=== PATIENT | male | born 1950 | race Caucasian/White ===

== ENCOUNTER → 2017-02-18 | Outpatient (CLI) | payer MEDICARE, OTHER ==
[~2017-02-18] MED LIST: ASPI81CH PO; ATOR20 PO; Coumadin4 MG PO; Coumadin5 MG PO; DILT120 PO; DILT180 PO; DIPH50 PO; ENOX80I SC; FOLI1 PO; GLIM4 PO; HYDR1TAB94 PO; IBUP400 PO; INSR10I SUBQ; INSUASPI SC; INSULANPEN SC; Lisinopril2.5 MG PO; METF500 PO; METO25ER PO; METO50; METO50ER PO; METO5A PO; MULVITMIND PO; Micro-K10 MEQ PO; NALT50 PO; Norco 5-325 Ta1 EACH PO; PANT20 PO; PANT40 PO; THIA100 PO; TRAZ50 PO; WARF4 PO; WARF6 PO; [UNRECOGNIZED DRUG - OTHER] PO
[2017-02-18 16:06] LABS: BASOPHILS ABSOLUTE AUTO 0.03 K/mm3 (0.00-0.23); BASOPHILS PERCENT AUTO 1 % (0-2); EOSINOPHILS ABSOLUTE AUTO 0.16 K/mm3 (0.00-0.68); EOSINOPHILS PERCENT AUTO 3 % (0-6); Hematocrit 37.2 % (37.0-53.0); Hemoglobin 12.6 g/dL (13.5-17.5); IMMATURE GRAN ABSOLUTE AUTO 0.02 K/mm3 (0.00-0.10); IMMATURE GRAN PERCENT AUTO 0 % (0-1); LYMPHOCYTES ABSOLUTE AUTO 1.22 K/mm3 (0.84-5.20); LYMPHOCYTES PERCENT AUTO 21 % (21-46); MONOCYTES PERCENT AUTO 5 % (4-13); Mean Corpuscular HGB 31.4 pg (26.0-34.0); Mean Corpuscular HGB Conc 33.9 g/dL (31.5-36.5); Mean Corpuscular Volume 93 fL (80-100); Mean Platelet Volume 10.9 fL (9.1-12.4); NEUTROPHILS ABSOLUTE AUTO 4.08 K/mm3 (1.96-9.15); NEUTROPHILS PERCENT AUTO 70 % (41-73); Platelet Count 177 K/mm3 (150-400); RDW Coefficient Variation 13.1 % (11.7-14.2); RDW Standard Deviation 44.4 fL (35.1-46.3); Red Blood Cell Count 4.01 M/mm3 (4.30-5.90); White Blood Cell Count 5.81 K/mm3 (4.00-11.30)
[2017-02-18 16:51] LABS: Alanine Aminotransfer (ALT/SGP 48 U/L (12-78); Albumin, Blood 3.4 g/dL (3.4-5.0); Alk Phos 69 U/L (50-136); Anion Gap 7 mmol/L (6-16); Aspartate Aminotrans (AST/SGOT 36 U/L (12-37); Bilirubin, Direct <0.1 mg/dL (0.0-0.3); Bilirubin, Indirect Unable to Calculate mg/dL (0.1-0.7); Bilirubin, Total 0.4 mg/dL (0.1-1.0); Blood Urea Nitrogen 24 mg/dL (8-24); Bun/Creatinine Ratio 21.2 (12.0-20.0); CO2, Blood 25 mmol/L (21-32); Chloride, Blood 105 mmol/L (98-108); Creatinine, Blood 1.13 mg/dL (0.60-1.20); Globulin, Blood 3.5 g/dL (2.2-4.0); Glomerular Filtration Rate >60 (60-); Glucose, Blood 137 mg/dL (70-99); Potassium, Blood 4.7 mmol/L (3.5-5.5); Sodium, Blood 137 mmol/L (136-145); Total Protein, Blood 6.9 g/dL (6.4-8.2)
== END | disposition home or self-care (01) ==
LOC: OLS 13:42
PROVIDERS: Registered Nurse
DX: Z00.00 Encounter for general adult medical examination without abnormal findings (principal); I11.0 Hypertensive heart disease with heart failure; I50.9 Heart failure, unspecified; I48.1 Persistent atrial fibrillation
CPT/HCPCS: 36415; 80053; 82248; 84443; 85025

== ENCOUNTER → 2018-02-05 | Outpatient (CLI) | payer MEDICARE, OTHER | END | disposition home or self-care (01) | LOC: LAB EV 14:11 → LAB SHORT 14:11 | DX: R33.9 Retention of urine, unspecified (principal) | CPT/HCPCS: 87086 ==

== ENCOUNTER 2018-02-21 11:24 | Inpatient (IN) | payer MEDICARE, OTHER ==
[~2018-02-21] VITALS: Ht 182.9 cm; Wt 82.7 kg
[2018-02-21 12:08] LABS: BASOPHILS ABSOLUTE AUTO 0.05 K/mm3 (0.00-0.23); BASOPHILS PERCENT AUTO 0 % (0-2); EOSINOPHILS PERCENT AUTO 0 % (0-6); Hematocrit 37.8 % (37.0-53.0); Hemoglobin 12.9 g/dL (13.5-17.5); IMMATURE GRAN ABSOLUTE AUTO 0.14 K/mm3 (0.00-0.10); IMMATURE GRAN PERCENT AUTO 1 % (0-1); LYMPHOCYTES PERCENT AUTO 3 % (21-46); MONOCYTES ABSOLUTE AUTO 0.86 K/mm3 (0.16-1.47); MONOCYTES PERCENT AUTO 5 % (4-13); Mean Corpuscular HGB 31.7 pg (26.0-34.0); Mean Corpuscular HGB Conc 34.1 g/dL (31.5-36.5); Mean Corpuscular Volume 93 fL (80-100); Mean Platelet Volume 9.5 fL (9.1-12.4); NEUTROPHILS ABSOLUTE AUTO 14.29 K/mm3 (1.96-9.15); NEUTROPHILS PERCENT AUTO 90 % (41-73); Platelet Count 201 K/mm3 (150-400); RDW Coefficient Variation 12.1 % (11.7-14.2); RDW Standard Deviation 41.6 fL (35.1-46.3); Red Blood Cell Count 4.07 M/mm3 (4.30-5.90); White Blood Cell Count 15.84 K/mm3 (4.00-11.30)
[2018-02-21 12:34] LABS: Albumin, Blood 2.5 g/dL (3.4-5.0); Albumin/Globulin Ratio 0.7 (0.8-1.8); Bilirubin, Total 0.8 mg/dL (0.1-1.0); Bun/Creatinine Ratio 17.4 (12.0-20.0); Calcium, Blood 8.1 mg/dL (8.5-10.1); Creatinine, Blood 1.9 mg/dL (0.60-1.20); Globulin, Blood 3.7 g/dL (2.2-4.0); Potassium, Blood 3.9 mmol/L (3.5-5.5); Total Protein, Blood 6.2 g/dL (6.4-8.2)
[2018-02-21 12:44] LABS: Influenza A Negative (NEGATIVE); Influenza B Negative (NEGATIVE)
[2018-02-21] MEDS ORDERED: WARF6 PO (13:55)
[2018-02-21] MEDS ORDERED: TAMS.4ER PO (13:56)
[2018-02-21] MEDS ORDERED: INSUGL100V SC (13:56)
[2018-02-21] MEDS ORDERED: Bactrim 400-801 EACH PO (13:57)
[2018-02-21 15:16] LABS: International Normalized Ratio 1.18
[2018-02-21 15:53] LABS: Source, Urine Clean Catch
[2018-02-21 16:20] LABS: Appearance, Urine Cloudy (Clear); Blood, Urine 5+ (Neg); Color, Urine Yellow (P-Yellow); Glucose Qualitative, Urine Neg (Neg); Ketones, Urine 1+ (Neg); Leukocyte Esterase, Urine 3+ (Neg); Nitrite, Urine Pos (Neg); Protein, Urine 3+ (Neg); Specific Gravity, Urine 1.015 (1.003-1.022); Urobilinogen, Urine 1+ (Normal)
[2018-02-21 16:23] LABS: Bilirubin, Urine 1+ (Neg)
[2018-02-21 16:42] LABS: White Blood Cells, Urine TNTC /hpf (0-5)
[2018-02-21 16:43] LABS: Bacteria Few /hpf; Squamous Epithelial Cells Not Seen /hpf (Few)
[2018-02-21 16:51] LABS: U Amphetamine Screen Not Detected; U Barbituate Screen Not Detected; U Benzodiazapine Screen Not Detected; U Buprenorphine Screen Not Detected; U Cannabinoids Screen DETECTED; U Cocaine Screen Not Detected; U Methadone Screen Not Detected; U Methamphetamine Screen Not Detected; U Opiates Screen Not Detected; U Oxycodone Screen Not Detected; U Phencyclidine Screen Not Detected; U Propoxyphene Screen Not Detected
--- NOTE | 2018-02-21 17:01 | NUR ---
Patient arrived via gurney from ER post report. He was a slide transfer to ICU bed 2. He is alert and oriented and is on RA and stats upper 90%'s. His speech is clear and is able to communicate his needs. He has 16Fr. gordillo draining to gravity cloudy yellow urine. He c/o lower abdominal pain 8/10 and 10/10 with palp. He has 18gaIV in RFA and dressing intact and site WNL's and is infusing NS at 100ml/hr. He is able to MAEW. systolic 70-90's and MAP >65, HR 120 and A-Fib
--- NOTE | 2018-02-21 18:00 | NUR ---
Patient was resting but he awakened when enetering room and requested pain medication, and medicated with fentanyl 25mcg. and seemed to work.. Patient denies any other problems.
--- NOTE | 2018-02-22 00:33 | NUR ---
ASSUMED CARE RECEIVED PT REPORT FROM BERTRAND NELSON. PT IS ADMITTED DUE TO UROSEPSIS. PT IS ALERT AND ORIENTED AT THE TIME CARE ASSUMED. PT HAS OROZCO CATH IN PLACE THAT IS CURRENTLY PATENT AND DRAINING CLOUDY YELLOW URINE. SOME ODEROUS DISCHARGE NOTED FROM MEATAL OPENING AROUND CATHETER INSERTION WITH CATH CARE. PT HAS A HX OF CHRONIC A-FIB. PT HR AT THE TIME CARE WAS ASSUMED IS IN THE 100-120'S. PT BP IS IN THE 90-100'S. PT ON ROOM AIR AT THE TIME CARE ASSUMED WITH SPO2 IN THE 90'S PT IS RECEIVING NS AT 200ML/HR AT THE TIME OF SHIFT REPORT. SHORTLY AFTER CARE ASSUMED PT HR INCREASED TO THE 150-160'S. PT REPORTED INCREASED NAUSEA AND TEMPERATURE INCREASED TO APPROX 102. DR GREEN CALLED AND ORDERS RECEIVED TO PROVIDE 500ML BOLUS OF NS AND PROVIDE 1 TIME DOSE OF LEVOFLOXACIN 500MG. ORDERS ENTERED AND CARRIED OUT RECEIVED. PT HR APPEARED TO RESPOND AND LOWERED TO THE 120'S. AT APPROX 2145 PT BEGAN TO REPORT WHAT WAS DESCRIBED AT INTENSE "STABBING" PAIN TO THE RIGHT FLANK. PT STATED THAT HE HAD PAIN RADIATING DOWN TO TESTICLES WELL. PT ALSO REPORTED INCREASED NAUSEA. DR GREEN CALLED AND INFORMED OF PTS REPORTS OF PAIN AND INCREASED HR. ORDER RECEIVED TO TAKE PT TO CT FOR ABDOMINAL AND PELVIS CT W/O CONTRAST. DR GREEN STATED THAT HR DID NOT NEED TO BE TREATED UNLESS IT MAINTAINED IN THE 150'S OR PT BP BEGINS TO DECLINE. ORDERS ENTERED RECEIVED. PT TAKEN TO CT AT APPROX 2230 AND RETURNED AT 2258. PT CONTINUED TO REPORT RIGHT FLANK PAIN. DR GARCIA CALLED AT APPROX 2318. INSTRUCTIONS RECEIVED TO PROVIDE ADDITIONAL 25MCG OF FENTANYL. ASSUMED CARE OF PT AT THE TIME OF SHIFT REPORT. WILL CONTINUE TO MONITOR PT.
[2018-02-22 04:22] LABS: Hematocrit 35.1 % (37.0-53.0); Hemoglobin 12.2 g/dL (13.5-17.5); Mean Corpuscular HGB 30.9 pg (26.0-34.0); Mean Corpuscular HGB Conc 34.8 g/dL (31.5-36.5); Mean Corpuscular Volume 89 fL (80-100); Mean Platelet Volume 11.7 fL (9.1-12.4); Platelet Count 131 K/mm3 (150-400); RDW Coefficient Variation 11.9 % (11.7-14.2); RDW Standard Deviation 38.9 fL (35.1-46.3); Red Blood Cell Count 3.95 M/mm3 (4.30-5.90); White Blood Cell Count 13.91 K/mm3 (4.00-11.30)
[2018-02-22 04:44] LABS: Albumin, Blood 2.1 g/dL (3.4-5.0); Albumin/Globulin Ratio 0.6 (0.8-1.8); Bilirubin, Total 0.4 mg/dL (0.1-1.0); Bun/Creatinine Ratio 19.2 (12.0-20.0); Calcium, Blood 7.4 mg/dL (8.5-10.1); Creatinine, Blood 1.82 mg/dL (0.60-1.20); Globulin, Blood 3.4 g/dL (2.2-4.0); Magnesium, Blood 1.7 mg/dL (1.6-2.4); Potassium, Blood 3.3 mmol/L (3.5-5.5); Total Protein, Blood 5.5 g/dL (6.4-8.2)
--- NOTE | 2018-02-22 06:10 | NUR ---
SHIFT SUMMARY NOTE PT HAS REMAINED ALERT AND ORIENTED THROUGH THE SHIFT. PT CONTINUES TO BE PAINFUL AND NAUSEOUS. PT HAS BEEN PROVIDED FENTANYL AND ZOFRAN FREQUENTLY THROUGHOUT THE NIGHT. PT HAS REMAINED IN A-FIB WITH RVR THROUGH THE NIGHT. PT HR HAS MAINTAINED IN THE 130-140'S THROUGH MUCH OF THE NIGHT WITH OCCASIONAL SPIKES INTO THE 150' AND 160'S. DR GARCIA WAS CALLED AND INFORMED OF PTS HR. 250ML NS BOLUS PROVIDED. PT BP RESPONDED TO BOLUS. AFTER NS BOLUS 10MG CARDIZEM BOLUS PROVIDED WITH SOME EFFECT. PT BP MAINTAINED AFTER ADMINISTRATION OF DILTIAZEM. DR GARCIA WAS CALLED AND ORDER RECEIVED FOR CARDIZEM GTT. CARDIZEM GTT STARTED AT 5MG/HR. CARDIZEM TITRATED UP TO 10MG/HR AT APPROX 0620. PT HAS HAD OCCASIONAL RUNS OF V-TACH THROUGH THE NIGHT, APPROX 5-6 BEATS LONG. PT REMAINS ON NS AT 150ML/HR. PT HAD APPROX 650ML OF URINE OUTPUT OVERNIGHT. PT URINE IS DARK MAGDIEL AND VERY CLOUDY, WITH SOME ODOR. PT CONTINUES TO REPORT ABD AND RIGHT FLANK PAIN INTERMITTENTLY. PT REPORTS RELEIF WITH FENTANYL ADMINISTRATION BUT ONLY BREIFLY. PT CONTINUES TO HAVE A TEMP OF APPROX 100.1 PT HAS OCCASIONALLY DESATURATED WHEN ASLEEP INTO THE HIGH 80'S. O2 VIA NC APPLIED AT 4L. LUNGS REMAIN OCCASIONALLY COARSE. SOME FINE CRACKLES HEARD TOWARD THE END OF THE SHIFT. WILL REPORT OFF TO ONCOMING DAY SHIFT NURSE.
--- NOTE | 2018-02-22 08:30 | NUR ---
Recieved report from Jona THURSTON. Patient was resting during report and allowing him to rest as in report he recieved no rest all night. He awoke in pain 08/20 and got order for fentanyl patch and gave IV Fentanyl 50 mcg, 4mg Zofran and stated doing better. US in room doing Renal US. He c/o flank and lower abd. pain. He has Mc draing cloudy yellow urine to gravity. He has bilateral SCD's in place.. He MAEW but weak and is indepenedent with repositioning in bed. He has been on RA and tolerating well.
--- NOTE | 2018-02-22 09:24 | NUR ---
Patient awake and having dry heaves and states r/t pain. Medicated about an hour agor with Fentanyl and zofran and he has patch on and is not timed for any pain meds. Gave tylenol for fever and some pain.He continueson Cardizem drip at 15mnl/hr with rate of 90's and A-Fib. Will call for decreased time for meds.
--- NOTE | 2018-02-22 11:30 | NUR ---
Patient was painful and called Dr. Young and changed Fenatayl frequency to two hours. He seems to manage well most of time, but can't quiet make the full duration for pain med. When every 4 hours he could last three pain free and now that it is every two hours he is only last about 1.5 hours. Cardizem gtt at 10 and his rate is down to 90s and syatolic 130's. Will communicate with Dr Young of pain duration. He remains on Ra and sats mid 90%'s.
--- NOTE | 2018-02-22 13:30 | NUR ---
Patient continues to have pain and medicating every two hours. Cardizem gtt remains at 10mg and HR in the 80-90's, systolic 116 and sats 94% on RA. NS continues at 150ml/hr.
--- NOTE | 2018-02-22 15:30 | NUR ---
Medicated with 50 mcg of fentanyl and 4 mg Zofran for retching. No other significant changes on gtt or VS.
--- NOTE | 2018-02-22 17:56 | NUR ---
Patient resting intermitently and awakens shortly before pain meds are due in pain. He has been tolerating ice chips most fo shift. Cardizem remains at 10mg and started on potassium riders. He has NS at 150ml, no significant changes in lung sounds this shift. CBG's today low 200's.
--- NOTE | 2018-02-22 21:05 | NUR ---
Assumed care of the pt. Pt. a/o x3. C/O ABD pain- too early for med but will give when due. B/P stable. Monitor shows A-Fib with controlled rate on cardizem 10mg/hr. NS infusing at 150ml/hr. KCL infusion completed. Con't with episodes of dry heaves.
--- NOTE | 2018-02-22 21:07 | NUR ---
ASSUMING CARE AND PT REPORT RECEIVED PT REPORT FROM BERTRAND NELSON, PT IS ALERT AND ORIENTED AT THE TIME OF SHIFT REPORT. PT CONTINUES TO BE QUITE PAINFUL. PT HAS REQUIRED FREQUENT PAIN MEDICATION ADMINISTRATION PER REPORT AND EMAR. PT REMAINS ON DILT GTT AT 10MG/HR, PT IS RECEIVING KCL IV, AND NS AT 150ML/HR. PT HAS A OROZCO CATH IN PLACE. CURRENTLY PATENT AND DRAINING CLOUDY YELLOW URINE. URINE APPEARANCE HAS IMPROVED SOMEWHAT SINCE PREVIOUS SHIFT OF CARE. PT IS ON 4L O2 VIA NC AT THIS TIME. PT WILL OCCASIONALLY DESATURATE WHILE ASLEEP. LUNG SOUNDS ARE OCCASIONALLY COARSE. PT HR IS CURRENTLY MAINTAINING IN THE 90-100 RANGE. PT BP APPEARS TO BE STABLE AT THIS TIME. ASSUMED CARE OF PT AT THE TIME OF SHIFT REPORT (APPROX 1900). PT PROVIDED 50MCG FENTANYL AND 4MG ZOFRAN, DUE TO PAIN AND NAUSEA AT THE START OF THE SHIFT. AT APPROX 2100 REPORT GIVEN TO BERTRAND LEE. JESUS TO BE ASSUMING CARE OF PT AT THIS TIME.
--- NOTE | 2018-02-23 01:56 | NUR ---
Pain- pt. requiring 50mg Fentanyl q 2 hr. Pt. pain level up to 9 and then down to 2-3 past med given and pt able to sleep until almost time for next dose.
[2018-02-23 03:21] LABS: BASOPHILS ABSOLUTE AUTO 0.03 K/mm3 (0.00-0.23); BASOPHILS PERCENT AUTO 0 % (0-2); EOSINOPHILS PERCENT AUTO 0 % (0-6); Hematocrit 32.9 % (37.0-53.0); Hemoglobin 11.2 g/dL (13.5-17.5); IMMATURE GRAN ABSOLUTE AUTO 0.05 K/mm3 (0.00-0.10); IMMATURE GRAN PERCENT AUTO 0 % (0-1); LYMPHOCYTES PERCENT AUTO 3 % (21-46); MONOCYTES PERCENT AUTO 6 % (4-13); Mean Corpuscular HGB 30.4 pg (26.0-34.0); Mean Corpuscular Volume 89 fL (80-100); Mean Platelet Volume 10.3 fL (9.1-12.4); NEUTROPHILS ABSOLUTE AUTO 10.51 K/mm3 (1.96-9.15); NEUTROPHILS PERCENT AUTO 91 % (41-73); Platelet Count 151 K/mm3 (150-400); RDW Coefficient Variation 12.5 % (11.7-14.2); RDW Standard Deviation 41.1 fL (35.1-46.3); Red Blood Cell Count 3.68 M/mm3 (4.30-5.90); White Blood Cell Count 11.59 K/mm3 (4.00-11.30)
[2018-02-23 03:42] LABS: Bun/Creatinine Ratio 23.6 (12.0-20.0); Calcium, Blood 7.3 mg/dL (8.5-10.1); Creatinine, Blood 1.48 mg/dL (0.60-1.20); Potassium, Blood 3.4 mmol/L (3.5-5.5)
--- NOTE | 2018-02-23 04:07 | NUR ---
SAO2- Attempted to dc O2 and SAO2 decreased to 78% after 15-20 min. O2 at 2l/nc reapplied.
--- NOTE | 2018-02-23 06:05 | NUR ---
Summary- Pt. has req. pain med every 2 hrs t/o noc. Pain level 9 before med and decrease to 34 after. Pt. has slept past doses. Pt. moves independently in bed. IV's of NS and cardizem remain unchg'd.Monito con't A-FIB with rate mainlu <100 but couple of brief episodes of 100's. B/P has remained stable t/o night. Urine has cleared to a med yellow and so cloudy. Good u/o per gordillo. Blood Sugars have been covered x2 tonight with 3units each time.
--- NOTE | 2018-02-23 07:30 | NUR ---
Recieved report from Anthony THURSTON. Patient resting but easily awakened to verbal stimuli. He states he did not sleep well r/t pain and was medicated every two hours. He is on 2L O2 with sats in the mid 90%'s via NC. He has IV bilaterally upper extremities at wrist and Dressings intact and WNL's. The left is infuasing ns at 150ml/hr and the right iis infusing Carizem at 10m,g/hr with HR in the 80's and systolic low 100's. Will communicate with Hospitalist that current pain regimine is not keeping up with his pain control He has 16Fr. gordillo draining to gravity, less cloudy and more yellow. He continues to each ice chips sparingly.
--- NOTE | 2018-02-23 09:30 | NUR ---
Dr Young by and we changed medication regimine for pain and when in room patiet snoring. No changes in VS or gtt. He tolertaed two small cartons of whole milk and Dr Young would like to start diet as tolerated and will start with mech soft.
--- NOTE | 2018-02-23 11:27 | NUR ---
Patient continues to lsleep with little movement. No changes in gtt's or VS. Increased O2 to $l O2 while sleeping he was desatting upper 80's and now back in the 90"s.
--- NOTE | 2018-02-23 13:30 | NUR ---
Medicated patient by request. I brought him lunch and he stated he would try in a little bit. He has been sleeping since and will hold lunch until awakens. He tolerates liquids well but is trying not to eat solids and he really has no reason that he is staing. No changes in gtt or VS. Will let to continue to sleep. CBG 219 and covered with 5 unis Insulin.
--- NOTE | 2018-02-23 15:30 | NUR ---
No changes and he continues to sleep. The 4mg Morphine seems to last about 4 hours and allows him to rest. No changes to VS, Gtt's or O2. He continues to sat low to mid 90%'s on 4L while sleeping. Poor appetite and drank another milk.
--- NOTE | 2018-02-23 18:14 | NUR ---
Patient is awake and less painfull after medication. He is on the phone with daughter. Cardizem gtt went to 15 for a little bit with rate in the 120's and is slowly coming down and will adjust gtt. Fluids still running at 150ml/hr and He has two potassium riders that need to infuse. Did not want to take bath today.
--- NOTE | 2018-02-23 20:32 | NUR ---
CARE ASSUMED REPORT RECEIVED, CARE ASSUMED. PT AROUSES ON NURSE ROUNDING. REPORTS PAIN IN FLANK AND ABDOMEN, MEDICATED PER EMAR. DILTIAZEM INFUSING, PLAN TO TITRATE PT TOLERATES. SEE FLOWSHEETS. PT ON 4 LPM NASAL CANNULA 02 SAT MID 90'S, WILL TITRATE PT TOLERATES. PT REQUESTING MILK AND WATER, PROVIDED TWO TIMES. PT AGREEABLE TO USE CALL LIGHT FOR NEEDS.
--- NOTE | 2018-02-23 22:44 | NUR ---
OXYGEN TITRATION PT TITRATED TO 3 LPM NASAL CANNULA, O2 SAT DROPPED TO MID 80'S. RETURNED 02 TO 3 LPM AND SATURATIONS IMPROVED TO LOW 90'S.
[2018-02-24 03:27] LABS: BASOPHILS ABSOLUTE AUTO 0.02 K/mm3 (0.00-0.23); BASOPHILS PERCENT AUTO 0 % (0-2); EOSINOPHILS ABSOLUTE AUTO 0.06 K/mm3 (0.00-0.68); EOSINOPHILS PERCENT AUTO 1 % (0-6); Hematocrit 32.9 % (37.0-53.0); Hemoglobin 11.3 g/dL (13.5-17.5); IMMATURE GRAN ABSOLUTE AUTO 0.11 K/mm3 (0.00-0.10); IMMATURE GRAN PERCENT AUTO 1 % (0-1); LYMPHOCYTES ABSOLUTE AUTO 0.43 K/mm3 (0.84-5.20); LYMPHOCYTES PERCENT AUTO 4 % (21-46); MONOCYTES ABSOLUTE AUTO 1.03 K/mm3 (0.16-1.47); MONOCYTES PERCENT AUTO 9 % (4-13); Mean Corpuscular HGB 30.9 pg (26.0-34.0); Mean Corpuscular HGB Conc 34.3 g/dL (31.5-36.5); Mean Corpuscular Volume 90 fL (80-100); Mean Platelet Volume 9.3 fL (9.1-12.4); NEUTROPHILS ABSOLUTE AUTO 10.29 K/mm3 (1.96-9.15); NEUTROPHILS PERCENT AUTO 86 % (41-73); Platelet Count 174 K/mm3 (150-400); RDW Coefficient Variation 12.6 % (11.7-14.2); RDW Standard Deviation 42.1 fL (35.1-46.3); Red Blood Cell Count 3.66 M/mm3 (4.30-5.90); White Blood Cell Count 11.94 K/mm3 (4.00-11.30)
[2018-02-24 03:43] LABS: Bun/Creatinine Ratio 23.6 (12.0-20.0); Calcium, Blood 7.6 mg/dL (8.5-10.1); Creatinine, Blood 1.4 mg/dL (0.60-1.20)
[2018-02-24 03:47] LABS: International Normalized Ratio 1.11; Prothrombin Time Results 11.4 Sec (9.7-11.5)
[2018-02-24] MEDS ORDERED: Lisinopril2.5 MG (04:58)
[2018-02-24] MEDS ORDERED: METO100ER PO (04:58)
--- NOTE | 2018-02-24 05:33 | NUR ---
MED REC DR. COKER CONTACTED REGARDING WARFARIN PHARMACY CONSULT. WHILE DISCUSSING WARFARIN CONSULT WITH PHARMACY, PT RE-INTERVIEWED REGARDING HOME MEDS AND STATES, "I HAD A FALLING OUT WITH MY DOCTOR SO I HAVEN'T BEEN TAKING THEM." FURTHER INQUIRY REVEALED PT ALSO TAKES METOPROLOL AND LISINOPRIL AT HOME BUT HASNT TAKEN THAT FOR WEEKS EITHER. WILL UPDATE DAY SHIFT RN TO BE ADDRESSED ON DAY SHIFT MD ROUNDS.
--- NOTE | 2018-02-24 05:49 | NUR ---
SUMMARY THROUGHOUT NIGHT, PT HAS SLEPT INTERMITTENTLY BUT AROUSING DUE TO PAIN/NAUSEA. MEDICATED PER EMAR. HR CONTINUES TO BE ELEVATED AVERAGING 100-110'S. DILTIAZEM CONTINUES TO INFUSE, SEE FLOWSHEET. BLOOD SUGARS ELEVATED ON AM LAB, PLAN IS TO START LONG ACTING INSULIN AND CONTINUE WITH MEDIUM SLIDING SCALE AT SCHEDULED TIMES. SEE ASSESSMENTS. PLAN CALLING APPROPRIATELY FOR NEEDS THROUGHOUT NIGHT.
--- NOTE | 2018-02-24 06:50 | NUR ---
UPDATE - HR/BP HR MAINTAINING 120-130'S, TOUCHING INTO 140'S AND 150'S OCCASIONALLY. BP ALSO ELEVATED. DILTIAZEM TITRATED, SEE FLOWSHEET.
--- NOTE | 2018-02-24 07:45 | NUR ---
ASSUMED CARE: PT IN BED AT THIS TIME. C/O NAUSEA AND PAIN. APPEARS TO BE DRY HEAVING. STATES HE HAS NOT VOMITED ANYTHING UP. MORPHINE GIVEN WHEN ABLE. ULTRA SOUND TECH IN ROOM NOW. IV FLUIDS RUNNING. CARDIZEM GTT AT 15MG/HR. HR IN 1TEENS WHEN PT IS CALM AND NOT ACTIVELY HEAVING OR IN SEVERE PAIN
--- NOTE | 2018-02-24 07:56 | NUR ---
PT'S HR CURRENTLY BETWEEN 130S AND 150S. CARDIZEM INCREASED TO 20MG/HR AT THIS TIME. WILL DISCUSS FURTHER WITH DR MACIAS
--- NOTE | 2018-02-24 09:07 | NUR ---
REPORTED TO DR MACIAS THAT PT'S HR REMAINS BETWEEN 130S AND 150S WITH CARDIZEM TITRATED TO 20MG/HR. SEE NEW ORDERS. PT REMAINS NAUSEATED. MEDS FOR NAUSEA GIVEN. RESTING IN BED WITH RAG ON FOREHEAD. DENIES OTHER NEEDS AT THIS TIME.
--- NOTE | 2018-02-24 10:59 | NUR ---
DISCUSSED WITH ISTRATE PT'S STATUS AND CURRENT RATE WITH CARDIZEM. INSTRUCTED TO CALL WITH UPDATE THIS AFTERNOON. GLOBAL MARKETING OPERATIONS MANAGER AWARE
--- NOTE | 2018-02-24 13:07 | NUR ---
DISCUSSED WITH DR MACIAS PT'S STATUS. CHANGED TO PCU STATUS. CHANGES MADE TO MEDS TO CONTINUE SNF ASSISTANCE WITH HR CONTROL. POWER TRANSFORMER REPAIR SUPERVISOR AWARE
--- NOTE | 2018-02-24 17:31 | NUR ---
SHIFT SUMMARY: PT REMAINS ON CARDIZEM DRIP. TITRATING FOR EFFECT. CURRENTLY ON 10 MG/HR. MEDICATING FREQUENTLY FOR PAIN AND NAUSEA. PT CONTINUES TO REPOSITION SELF IN BED BUT DOES NOT FEEL LIKE DOING MUCH IN THE WAY OF ACTIVITY. PCU STATUS. NO FURTHER NEEDS OR CONCERNS AT THIS TIME.
--- NOTE | 2018-02-24 18:08 | NUR ---
REPORT CALLED TO BERTRAND MARIN. PT AMBULATED WITH MINIMAL ASSIST TO WHEEL CHAIR UPON TRANSFER. GOWN CHANGED PRIOR TO TRANSFER. NO OTHER NEEDS OR CONCERNS NOTED
--- NOTE | 2018-02-24 18:21 | NUR ---
PATIENT TRANSFERRED FROM ROOM ICU 2, REPORT RECEIVED FROM BERTRAND RANDALL. PATIENT ARRIVED VIA W/C, TRANSFERRED TO BE WITH SBA. CARDIZEM GTT RESTARTED AT 8ML/HR TO L FA IV. NS RESTARTED AT 150ML/HR TO R FA 18G IV. PATIENT REPORTS PAIN 5/10 TO ABD/FLANKS. R VELÁZQUEZ ABRASION, OTHER CHUNG SKIN INTACT. A-FIB AT 105 ON TELEMETRY. PATIENT DENIES ANY CHEST PAIN AT THIS TIME. VSS. 96% ON 4LO2, PATIENT DOES NOT USE HOME O2. ORIENTED TO ROOM, USE OF CALL LIGHT AND SAFETY PRECAUTIONS.
[2018-02-25 04:07] LABS: BASOPHILS ABSOLUTE AUTO 0.02 K/mm3 (0.00-0.23); BASOPHILS PERCENT AUTO 0 % (0-2); EOSINOPHILS ABSOLUTE AUTO 0.13 K/mm3 (0.00-0.68); EOSINOPHILS PERCENT AUTO 1 % (0-6); Hematocrit 32.1 % (37.0-53.0); IMMATURE GRAN ABSOLUTE AUTO 0.15 K/mm3 (0.00-0.10); IMMATURE GRAN PERCENT AUTO 1 % (0-1); LYMPHOCYTES ABSOLUTE AUTO 0.84 K/mm3 (0.84-5.20); LYMPHOCYTES PERCENT AUTO 6 % (21-46); MONOCYTES ABSOLUTE AUTO 1.19 K/mm3 (0.16-1.47); MONOCYTES PERCENT AUTO 9 % (4-13); Mean Corpuscular HGB Conc 34.3 g/dL (31.5-36.5); Mean Corpuscular Volume 90 fL (80-100); Mean Platelet Volume 9.8 fL (9.1-12.4); NEUTROPHILS ABSOLUTE AUTO 10.79 K/mm3 (1.96-9.15); NEUTROPHILS PERCENT AUTO 82 % (41-73); Platelet Count 159 K/mm3 (150-400); RDW Coefficient Variation 12.7 % (11.7-14.2); RDW Standard Deviation 42.6 fL (35.1-46.3); Red Blood Cell Count 3.55 M/mm3 (4.30-5.90); White Blood Cell Count 13.12 K/mm3 (4.00-11.30)
[2018-02-25 04:23] LABS: International Normalized Ratio 1.29; Prothrombin Time Results 13.1 Sec (9.7-11.5)
[2018-02-25 04:24] LABS: Anion Gap 8 mmol/L (6-16); Blood Urea Nitrogen 30 mg/dL (8-24); Bun/Creatinine Ratio 24.2 (12.0-20.0); CO2, Blood 22 mmol/L (21-32); Calcium, Blood 7.4 mg/dL (8.5-10.1); Chloride, Blood 107 mmol/L (98-108); Creatinine, Blood 1.24 mg/dL (0.60-1.20); Glomerular Filtration Rate >60 (60-); Glucose, Blood 218 mg/dL (70-99); Potassium, Blood 3.5 mmol/L (3.5-5.5); Sodium, Blood 137 mmol/L (136-145)
--- NOTE | 2018-02-25 05:26 | NUR ---
SHIFT SUMMARY PT A&O X4, CALM AND COOPERATIVE, C/O ABD PAIN, REQUESTING PAIN MEDICATION PERIODICALLY T/O SHIFT. PT TX'D PER EMAR. LUNG SOUNDS CLEAR T/O. SPO2 > 90% TITRATED FROM 4L NC TO RA T/O SHIFT. MONITOR SHOWS AFIB, HR 90-140. CARDIZEM GTT INFUSING @ 10 MG/HR. NS GTT @ 150 MLS/HR. PT DRINKING FLUIDS T/O NIGHT. OROZCO CATH PATENT AND DRAINING CLEAR YELLOW URINE. PT C/O NAUSEA, TX'D PER EMAR. WILL CONTINUE TO MONITOR AND PROVIDE CARE UNTIL REPORT OFF TO DAY SHIFT RN.
--- NOTE | 2018-02-25 19:22 | NUR ---
PATIENT A/OX4, UP WITH SBA. CONTINUES ON CARDIZEM GTT AT 10ML/HR AND NS AT 150ML/HR. LFA IV INFILTRATED WHILE GIVING D50 AND IS RED AND TENDER TO TOUCH. BLOOD SUGAR CAME UP FROM [address] MACIAS NOTIFIED OF BLOOD SUGAR AND SS INSULIN DECREASED TO LOW SS AND LANTUS CHANGED BACK TO QHS INSTEAD OF BID. PATIENT CONTINUES TO HAVE ABD PAIN AND NAUSEA, RECEIVING MORPHINE AND ZOFRAN TO TREAT. A-FIB ON TELE WITH PULSE BETWEEN 90 AND 120. DENIES ANY CHEST PAIN OR SOB. MAINTAING SATS ON RA. CALM AND COOPERATIVE WITH CARE, USES CALL LIGHT APPROPRIATELY FOR ASSISTANCE.
--- NOTE | 2018-02-26 00:20 | NUR ---
BLOOD GLUCOSE HS BLOOD GLUCOSE OF 107 MG/DL; EVENING DOSE OF LANTUS HELD PER CLINICAL JUDGEMENT. SPOT CHECKED CBG WITH RESULT OF 50 MG/DL. PT CURRENTLY ASYMPTOMATIC AND PROVIDED WITH ORANGE JUICE PER HYPOGLYCEMIA PROTOCOL. WILL RECHECK IN ONE HOUR IF PATIENT REMAINS ASYMPTOMATIC. PT EDUCATED TO CALL FOR ASSISTANCE IF S/SX OF HYPOGLYCEMIA ARE PRESENT. WILL CONTINUE MONITORING. BED IN LOW POSITION, CALL LIGHT IN REACH.
--- NOTE | 2018-02-26 01:30 | NUR ---
BLOOD GLUCOSE- REPEAT BLOOD GLUCOSE PERFORMED WITH RESULT OF 98 MG/DL. PT CONTINUES TO BE ASYMPTOMATIC AT THIS TIME. MED REC UPDATED TO REFLECT PATIENT'S HOME INSULIN REGIMEN, WHICH IS 20-40 UNITS OF LANTUS EVERY TWO TO THREE DAYS, DEPENDING ON BLOOD GLUCOSE, WILL DISCUSS WITH PROVIDER IN AM. PT REPORTS THAT HE CONTROLS BLOOD GLUCOSE WITH DIET AT HOME AND USES INSULIN NEEDED, BUT DOES NOT USE FREQUENTLY. ALSO PROVIDED WITH WHOLE MILD PER REQUEST IN ATTEMPTS TO MAINTAIN BLOOD GLUCOSE LEVELS. WILL CONTINUE TO MONITOR.
[2018-02-26 04:31] LABS: BASOPHILS ABSOLUTE AUTO 0.01 K/mm3 (0.00-0.23); BASOPHILS PERCENT AUTO 0 % (0-2); EOSINOPHILS ABSOLUTE AUTO 0.15 K/mm3 (0.00-0.68); EOSINOPHILS PERCENT AUTO 2 % (0-6); Hematocrit 26.5 % (37.0-53.0); Hemoglobin 9.2 g/dL (13.5-17.5); Mean Corpuscular HGB 30.8 pg (26.0-34.0); Mean Corpuscular HGB Conc 34.7 g/dL (31.5-36.5); Mean Corpuscular Volume 89 fL (80-100); Platelet Count 174 K/mm3 (150-400); RDW Coefficient Variation 12.6 % (11.7-14.2); Red Blood Cell Count 2.99 M/mm3 (4.30-5.90); White Blood Cell Count 9.56 K/mm3 (4.00-11.30)
[2018-02-26 04:38] LABS: IMMATURE GRAN ABSOLUTE AUTO 0.19 K/mm3 (0.00-0.10); IMMATURE GRAN PERCENT AUTO 2 % (0-1); LYMPHOCYTES ABSOLUTE AUTO 0.93 K/mm3 (0.84-5.20); LYMPHOCYTES PERCENT AUTO 10 % (21-46); MONOCYTES ABSOLUTE AUTO 0.79 K/mm3 (0.16-1.47); MONOCYTES PERCENT AUTO 8 % (4-13); NEUTROPHILS ABSOLUTE AUTO 7.49 K/mm3 (1.96-9.15); NEUTROPHILS PERCENT AUTO 78 % (41-73)
[2018-02-26 04:45] LABS: International Normalized Ratio 1.62; Prothrombin Time Results 16.2 Sec (9.7-11.5)
[2018-02-26 05:19] LABS: Anion Gap 6 mmol/L (6-16); Blood Urea Nitrogen 25 mg/dL (8-24); CO2, Blood 26 mmol/L (21-32); Calcium, Blood 6.9 mg/dL (8.5-10.1); Chloride, Blood 106 mmol/L (98-108); Creatinine, Blood 1.19 mg/dL (0.60-1.20); Glomerular Filtration Rate >60 (60-); Glucose, Blood 111 mg/dL (70-99); Potassium, Blood 3.4 mmol/L (3.5-5.5); Sodium, Blood 138 mmol/L (136-145)
--- NOTE | 2018-02-26 06:51 | NUR ---
SHIFT SUMMARY- PT HAS REMAINED AOX4 THROUGHOUT SHIFT. VSS. PLEASANT AND COOPERATIVE WITH CARE. HEART RHYTHM HAS REMAINED IN ATRIAL FIBRILLATION THROUGHOUT SHIFT WITH A RATE RANGING FROM 90-120, HAS REMAINED MOSTLY IN 110'S- CARDIZEM DRIP CONTINUES TO INFUSE WITH A CURRENT RATE OF 10 MG/HR. RFA INFLITRATED THIS AM, SWELLING AND REDNESS NOTED AROUND AREA APPROXIMATELY 5 CM IN DIAMETER FROM INSERTION SITE. PHARMACY CONTACTED AND ADVISED TO ELEVATE EXTREMITY AND APPLY HEAT IF DESIRED, PT REPORTS MILD DISCOMFORT TO AREA. POWERGLIDE PLACED. PT MEDICATED MULTIPLE TIMES FOR NAUSEA AND PAIN IN LOWER ABDOMEN THROUGHOUT THE NIGHT THAT RELIEVES WITH ORDERED MEDICATIONS.MORNING BLOOD GLUCOSE [id number] WITH AM LABS, PT NEVER BECAME SYMPTOMATIC WITH HYPOGLYCEMIA. NO OTHER CHANGES NOTED FROM INITIAL ASSESSMENT. WILL CONTINUE TO MONITOR AND REPORT TO ONCOMING RN. BED IN LOW POSITION, CALL LIGHT IN REACH.
--- NOTE | 2018-02-26 07:45 | NUR ---
NURSING PCU DAYSHIFT: Assumed care of pt at approx 0700. A/O, pleasant, cooperative w/care. Repositions independently and ambulates w/one staff assist, c/o chronic limited range of motion of R shoulder. C/O 3/10 "bladder pain" which is being treated w/rest, repositioning, and meds as ordered. Skin is dry w/no significant breakdown noted. Tele in place, afib w/HR 80-90's, no c/o CP/pressure, BP stable, no noted edema, pulses palp though R pedal pulse is faint. L/S cta t/o, O2 sat upper 90's on RA, denies dyspnea, no noted cough. Abd tender, BT+, c/o intermittent nausea, FC w/stat lock in place and draining clear/yellow urine. PG present in RUE, NS infusing at 150cc/hr, diltiazem gtt infusing at 10/hr. No s/s of acute distress at this time. Pt denies any current needs or questions regarding plan of care. Call light in reach and pt is able to use w/o difficulty. Awaiting rounding from PMD, will notify of Lantus dose being held by NOC RN w/ a.m. CBG result of 81. Cont to monitor for any changes.
--- NOTE | 2018-02-26 17:56 | NUR ---
NURSING PCU DAYSHIFT SUMMARY: No significant changes noted t/o the shift. VS have remained stable, no HR changes noted. Diltiazem gtt decreased to 5cc/hr at approx 1600, HR remained 90-110. Diltiazem gtt turned off at approx 1700, again no HR changes were noted. NS decreased to 75cc/hr, FC dc'd, and pt changed to medical status as per d/o. Family at bedside this afternoon. Ambulated halls ( >400ft ) w/rest breaks as needed. Pt required FWW though tolerated fairly well. No s/s of acute distress at this time. Call light in reach and pt is able to use w/o difficulty. Pt denies any current needs. Cont to monitor until rpt is given to TOREY RN.
[2018-02-27 04:31] LABS: Hematocrit 21.7 % (37.0-53.0); Hemoglobin 7.2 g/dL (13.5-17.5); Mean Corpuscular HGB 30.1 pg (26.0-34.0); Mean Corpuscular HGB Conc 33.2 g/dL (31.5-36.5); Mean Corpuscular Volume 91 fL (80-100); Mean Platelet Volume 9.2 fL (9.1-12.4); Platelet Count 220 K/mm3 (150-400); RDW Coefficient Variation 12.7 % (11.7-14.2); RDW Standard Deviation 42.6 fL (35.1-46.3); Red Blood Cell Count 2.39 M/mm3 (4.30-5.90); White Blood Cell Count 10.12 K/mm3 (4.00-11.30)
[2018-02-27 04:45] LABS: International Normalized Ratio 1.7
[2018-02-27 04:47] LABS: Albumin, Blood 1.6 g/dL (3.4-5.0); Anion Gap 6 mmol/L (6-16); Blood Urea Nitrogen 28 mg/dL (8-24); Bun/Creatinine Ratio 22.6 (12.0-20.0); CO2, Blood 26 mmol/L (21-32); Calcium, Blood 6.9 mg/dL (8.5-10.1); Chloride, Blood 105 mmol/L (98-108); Creatinine, Blood 1.24 mg/dL (0.60-1.20); Glomerular Filtration Rate >60 (60-); Glucose, Blood 214 mg/dL (70-99); Phosphorus, Blood 1.7 mg/dL (2.5-4.9); Potassium, Blood 3.8 mmol/L (3.5-5.5); Sodium, Blood 137 mmol/L (136-145)
--- NOTE | 2018-02-27 07:26 | NUR ---
SHIFT SUMMARY PATIENT PLEASENT AND COOPERATIVE THROUGHOUT THE NIGHT. PATIENT MEDICATED FOR PAIN AND NAUSEA PER EMAR. PATIENT APPEARED TO SLEEP WELL THROUGHOUT THE NIGHT. FLUIDS RUNNING PER ORDERS. AT APPROX 0600 [address] COKER WAS NOTIFIED THAT PATIENT'S HEART RATE WAS TRENDING IN THE 130'S. DR COKER SAID TO DO 5 MG IV LOPRESSOR X 1 INSTEAD OF INITIATING THE CARDIZEM GTT AGAIN. ONE UNIT OF PRBC'S ORDERED AND PENDING TYPE AND CROSS. PATIENT CURRENTLY APPEARS TO BE SLEEPING. CALL LIGHT WITHIN REACH. REPORT GIVEN TO ONCOMING NR.
--- NOTE | 2018-02-27 09:04 | NUR ---
NURSING PCU DAYSHIFT: Assumed care of pt at approx 0700. A/O, pleasant, cooperative w/care. Noted general weakness, able to ambulate using FWW w/one staff assist. Skin is fairly intact w/scattered bruising and reddened areas r/t blood draws and IV's. C/O 8-10/21 low abd pain/cramping, treating w/meds as ordered and positioning. Tele in place, afib w/HR 120-140's, no c/o CP/pressure, BP stable, no noted edema, pulses palp (R pedal = 1+, L pedal = 2+). L/S cta t/o, O2 sat 100% on RA, denies dyspnea, no noted cough. BT+, abd tenderness which pt states is "bladder pain", voiding small amts of clear/yellow urine frequently. PG present in RUE w/K+ Phos infusing as ordered, 20g present in LFA w/PRBC's infusing as ordered. Pt c/o not feeling well this a.m. w/worsening pain. Seen by PMD, new d/o received. Pyridium to be administered this a.m., CT abd w/o contrast to be scheduled. Call light in reach and pt has been able to use w/o difficulty. Cont to monitor for any changes.
[2018-02-27 12:40] LABS: Hematocrit 24.3 % (37.0-53.0); Hemoglobin 8.3 g/dL (13.5-17.5); Mean Corpuscular HGB 30.7 pg (26.0-34.0); Mean Corpuscular HGB Conc 34.2 g/dL (31.5-36.5); Mean Corpuscular Volume 90 fL (80-100); Mean Platelet Volume 10.3 fL (9.1-12.4); Platelet Count 237 K/mm3 (150-400); RDW Coefficient Variation 13.1 % (11.7-14.2); RDW Standard Deviation 42.9 fL (35.1-46.3); White Blood Cell Count 11.45 K/mm3 (4.00-11.30)
--- NOTE | 2018-02-27 16:07 | NUR ---
NURSING PCU DAYSHIFT SUMMARY: No significant changes noted t/o the shift. VS have remained stable, HR has had some improvement and is now maintaining 95-115, respiratory status unchanged. PO cardizem started for rate control, gtt remains off. NS continues to infuse at 75cc/hr. Pt continues to c/o bladder pain, meds administered as ordered, pyridium started, PO meds have been sufficient for pain control. Friends at bedside t/o the shift visiting w/pt and assisting w/needs. Pt continues to have minimal appetite though has been tolerating liquid oral intake. Denies nausea. No s/s of acute distress at this time. Medical floor room assignment received, telephone report provided to accepting RN. Pt denies any questions, cont to monitor until rpt is xfer is completed.
--- NOTE | 2018-02-27 18:30 | NUR ---
SHIFT SUMMARY TRANSFER FROM PCU THIS P.M. C/O BLADDER PAIN/NAUSEA WITH SCANT VOMITING AND MEDICATED PER MD ORDER UPON ARRIVAL TO FLOOR. DECREASED APPETITE. SBA TO BATHROOM OR BSC. OX4. CBG'S ACHS.
[2018-02-28 05:05] LABS: Hematocrit 22.6 % (37.0-53.0); Hemoglobin 7.7 g/dL (13.5-17.5); Mean Corpuscular HGB 30.1 pg (26.0-34.0); Mean Corpuscular HGB Conc 34.1 g/dL (31.5-36.5); Mean Corpuscular Volume 88 fL (80-100); Mean Platelet Volume 9.7 fL (9.1-12.4); NRBC ABSOLUTE 0.02 K/mm3 (0.00-0.02); NRBC Auto 0.2 /100 WBC (0.0-0.2); Platelet Count 277 K/mm3 (150-400); RDW Coefficient Variation 13.6 % (11.7-14.2); RDW Standard Deviation 43.4 fL (35.1-46.3); Red Blood Cell Count 2.56 M/mm3 (4.30-5.90); White Blood Cell Count 13.22 K/mm3 (4.00-11.30)
[2018-02-28 05:20] LABS: International Normalized Ratio 1.99; Prothrombin Time Results 19.8 Sec (9.7-11.5)
[2018-02-28 05:29] LABS: BAND PERCENT MAN 5 % (0-8); BASOPHILS ABSOLUTE MAN 0.13 K/mm3 (0.00-0.23); BASOPHILS PERCENT MAN 1 % (0-2); EOSINOPHILS ABSOLUTE MAN 0.26 K/mm3 (0.00-0.68); EOSINOPHILS PERCENT MAN 2 % (0-6); LYMPHOCYTES ABSOLUTE MAN 0.79 K/mm3 (0.84-5.20); LYMPHOCYTES PERCENT MAN 6 % (21-46); METAMYELOCYTE ABSOLUTE MAN 0.26 K/mm3 (0.00-0.00); METAMYELOCYTE PERCENT MAN 2 % (0-0); MONOCYTES ABSOLUTE MAN 0.52 K/mm3 (0.16-1.47); MONOCYTES PERCENT MAN 4 % (4-13); MYELOCYTE ABSOLUTE MAN 0.13 K/mm3 (0.00-0.00); MYELOCYTE PERCENT MAN 1 % (0-0); SEG NEUTROPHILS PERCENT MAN 79 % (41-73); TOTAL CELLS COUNTED 100
[2018-02-28 05:52] LABS: Albumin, Blood 1.8 g/dL (3.4-5.0); Anion Gap 7 mmol/L (6-16); Blood Urea Nitrogen 30 mg/dL (8-24); Bun/Creatinine Ratio 22.2 (12.0-20.0); CO2, Blood 25 mmol/L (21-32); Calcium, Blood 7.2 mg/dL (8.5-10.1); Chloride, Blood 105 mmol/L (98-108); Creatinine, Blood 1.35 mg/dL (0.60-1.20); Glomerular Filtration Rate 56 (60-); Glucose, Blood 172 mg/dL (70-99); Phosphorus, Blood 2.4 mg/dL (2.5-4.9); Potassium, Blood 3.7 mmol/L (3.5-5.5); Sodium, Blood 137 mmol/L (136-145)
--- NOTE | 2018-02-28 07:20 | NUR ---
SHIFT SUMMARY PT A/O USING URINAL IN BED. C/O PAIN IN ABD AND MEDICATED PER EMAR X4. SAID HE DIDN'T REALLY GET TO SLEEP MUCH T/O NIGHT. RECEIVED ONE UNIT PRBC NO TRANSFUSION REACTION. NO STOOL. CALL LIGHT IN REACH
--- NOTE | 2018-02-28 18:19 | NUR ---
SHIFT SUMMARY PATIENT WAS FOUND TO HAVE A LOW HEMOGLOBIN TODAY. THERE IS NO ACUTE CONCERNS AT THIS TIME. PATIENT IS ASYMPTOMATIC. PATIENT DENIES ANY EXCESS FATIGUE. WILL HAVE HEMOGLOBIN RECHECKED TOMORROW. PATIENT HAS BEEN IN THE BED TODAY. FREQUENT URINATION WITH ORANGE URINE (PYRIDIUM). PATIENT HAS TAKEN MEDICATION AROUND THE CLOCK EVERY 4 HOURS. WILL TRY TO HELP THE PATIENT KEEP THEM SPREAD OUT. NO OTHER CONCERNS AT THIS TIME. PATIENT HAD A SURGICAL CONSULT, AWAITING 'S NOTE.
[2018-03-01 05:17] LABS: Hematocrit 26.8 % (37.0-53.0); Hemoglobin 9.1 g/dL (13.5-17.5); Mean Corpuscular HGB 30.2 pg (26.0-34.0); Mean Corpuscular Volume 89 fL (80-100); Mean Platelet Volume 9.2 fL (9.1-12.4); NRBC ABSOLUTE 0.03 K/mm3 (0.00-0.02); NRBC Auto 0.2 /100 WBC (0.0-0.2); Platelet Count 369 K/mm3 (150-400); RDW Coefficient Variation 13.9 % (11.7-14.2); Red Blood Cell Count 3.01 M/mm3 (4.30-5.90); White Blood Cell Count 15.43 K/mm3 (4.00-11.30)
[2018-03-01 05:34] LABS: International Normalized Ratio 2.15; Prothrombin Time Results 21.3 Sec (9.7-11.5)
[2018-03-01 05:40] LABS: BAND PERCENT MAN 3 % (0-8); BASOPHILS PERCENT MAN 0 % (0-2); EOSINOPHILS PERCENT MAN 2 % (0-6); LYMPHOCYTES ABSOLUTE MAN 0.77 K/mm3 (0.84-5.20); LYMPHOCYTES PERCENT MAN 5 % (21-46); MONOCYTES ABSOLUTE MAN 1.08 K/mm3 (0.16-1.47); MONOCYTES PERCENT MAN 7 % (4-13); MYELOCYTE PERCENT MAN 2 % (0-0); NEUTROPHILS ABSOLUTE MAN 12.96 K/mm3 (1.96-9.15); SEG NEUTROPHILS PERCENT MAN 81 % (41-73); TOTAL CELLS COUNTED 100
[2018-03-01 05:47] LABS: Albumin, Blood 2.4 g/dL (3.4-5.0); Anion Gap 7 mmol/L (6-16); Blood Urea Nitrogen 25 mg/dL (8-24); Bun/Creatinine Ratio 18.8 (12.0-20.0); CO2, Blood 30 mmol/L (21-32); Calcium, Blood 8.1 mg/dL (8.5-10.1); Chloride, Blood 101 mmol/L (98-108); Creatinine, Blood 1.33 mg/dL (0.60-1.20); Glomerular Filtration Rate 57 (60-); Glucose, Blood 115 mg/dL (70-99); Phosphorus, Blood 2.8 mg/dL (2.5-4.9); Potassium, Blood 3.2 mmol/L (3.5-5.5); Sodium, Blood 138 mmol/L (136-145)
--- NOTE | 2018-03-01 06:10 | NUR ---
SHIFT SUMMARY: PT IS ALERT AND ORIENTED. PT IS CALM AND COOPERATIVE WITH CARE. PT CALLS APPROPRIATELY. PT IS A STANDBY ASSIST TO THE BATHROOM, ALSO USES THE URINAL IN BED. PT TOOK A SHOWER EARLY IN THE NIGHT. PT CONTINUES TO REPORT ABD PAIN, MEDICATING PER EMAR. PT ACTING CONFUSED AND RESTLESS AROUND 0300, CHECKED BLOOD GLUCOSE WHICH WAS 26, GAVE JUICE, ISHAN CRACKERS, CHOCOLATE MILK, RECHECKED UP TO 36, CALLED DR. COKER INSTRUCTED 25ML IV DEXTROSE, PT'S CONDITION RESOLVED, LATEST GLUCOSE 115. TELEMETRY CALLED AND REPORTED 6 BEAT RUN OF VTACH, NO CHANGE IN PT'S CONDITION. WILL REPORT TO DAY NURSE.
[2018-03-01 15:46] LABS: Source, Urine Clean Catch
[2018-03-01 16:01] LABS: Appearance, Urine Clear (Clear); Bilirubin, Urine Neg (Neg); Blood, Urine 1+ (Neg); Color, Urine Yellow (P-Yellow); Glucose Qualitative, Urine Neg (Neg); Ketones, Urine Neg (Neg); Leukocyte Esterase, Urine Neg (Neg); Nitrite, Urine Pos (Neg); Protein, Urine Neg (Neg); Urobilinogen, Urine NORM (Normal)
[2018-03-01 16:26] LABS: Bacteria Few /hpf; Squamous Epithelial Cells Not Seen /hpf (Few)
--- NOTE | 2018-03-01 19:24 | NUR ---
SHIFT SUMMARY PT AXO, THOUGH IRRITABLE AND BECAME ANGRY WITH NURSE UPON PAIN MEDICATION EDUCATION DURING NURSE PAIN ASSESSMENT. THIS NURSE RECIEVED REPORT FROM ELAINE SAWANT RN AT 1549. THIS NURSE ASSUMED CARE AT THAT TIME. THIS NURSE WENT IN TO ASSESS PATIENT AND PAIN AND INTRODUCE HERSELF. PT WAS ANGRY AND STATED THAT THE "HOSPITAL COULD DO MORE FOR HIS PAIN" NURSE EDUCATED PATIENT ABOUT PAIN MEDICATION AND CONTRAINDICATIONS INCLUDING URINARY RETENTION AND BOWEL MOTILITY. NURSE ASSESSED GI AND PAIN AT THAT TIME. PT STATED THAT HE IS THINKING ABOUT LEAVING AMA AND DRIVING UP TO [facility] FOR CARE. AT 1824 WHILE THIS NURSE WAS ADMINISTERING MEDICATIONS, PT STATED TO HIS FRIEND THAT HE JUST WANTED TO GO HOME AND KILL HIMSELF. AND HE UNDERSTANDS WHY PEOPLE DO IT. CHARGE NURSE KAYY NOTIFIED AT 1925. BUTTER MELTER NURSE NOTIFIED WHO IS ASSESSING PT FOR SI AT THIS TIME. PT MEDICATED FOR CONSTIPATION PER EMAR. DR MACIAS GAVE TELEPHONE ORDERS TO "GIVE ALL BOWEL CARE PER EMAR" BED IN LOW POSITION, CALL LIGHT WITHIN REACH.
--- NOTE | 2018-03-01 21:28 | NUR ---
POSITIVE SUICIDE SCREEN AROUND 1823 PT MENTIONED TO DAYTIME RN, THAT HE WANTED TO KILL HIMSELF. PLEASE REFER TO [facility] NURSE SUMMARY. SHE RELAYED THIS INFORMATION TO ME DURING REPORT. SHE NOTIFIED NIGHT TIME ORTHOPEDIC PHYSICIAN ANNA COLLINS. WHO INSTRUCTED THAT THE PHYSICAN NEEDED TO BE CALLED AND NOTIFED AND THAT A SUICIDE RISK SCREEN NEEDED TO BE DONE. SUICIDE RISK SCREEN DONE AND CAME BACK POSITIVE. LU PEREZ NP CALLED AND NOTIFIED OF POSITIVE SUICIDE SCREEN. LU PEREZ CAME IN TO ASSESS PT AT 2057. THERE WERE NO NEW ORDERS GIVEN, AND PT WAS CLEARED FOR SUICIDE RISK BY LU EPREZ NP. NURSING CONSULTING PSYCHIATRIST NOTIFIED AT 2155 THAT PT WAS CLEARED BY LU PEREZ NP SUICIDE RISK.
--- NOTE | 2018-03-02 04:25 | NUR ---
SHIFT SUMMARY THERE HAVE BEEN NO FRESH COMPLAINTS THIS SHIFT. PT CONTINUES TO COMPLAIN OF ABD PAIN. MEDICATED PER EMAR ORDERS. PT RESPONSIVE TO BOWEL CARE, HE HAD A MEDIUM SIZE STOOL THIS SHIFT. PT HAD A POSITIVE SUICIDE SCREEN, PLEASE SEE NURSES NOTES. LU GUSTAFSON, CLOVIS CAME INTO THE ROOM TO ASSESS AND TALK WITH PT. PT WAS CLEARED SUICIDE RISK. BG STABLE. CRACKERS AND MILK GIVEN TO MAINTAIN BG DURING NIGHT, PT APPETITE VERY POOR. PT FRUSTRATED ABOUT HIS PAIN. BUT OTHERWISE HAS BEEN POLITE AND PLESANT WITH STAFF THIS SHIFT. IVF INFUSING ORDERED. TELE IN PLACE WITH AFIB RHYTHMN. RATE IN THE 160'S SHORTLY AFTER SHIFT CHANGE PER TRUCK TRAILER FINAL INSPECTOR, PT WAS ASYMPTOMATIC. HEART RATE WAS RESPOSIVE TO 1800 DOSE OF CARDIZEM. BP AND HR MONITORED T/O SHIFT. NO OTHER CHANGES TO REPORT. WILL CONTINUE TO MONITOR AND REPORT TO ONCOMING RN.
[2018-03-02 04:43] LABS: Hematocrit 22.5 % (37.0-53.0); Hemoglobin 7.5 g/dL (13.5-17.5); Mean Corpuscular HGB 30.2 pg (26.0-34.0); Mean Corpuscular HGB Conc 33.3 g/dL (31.5-36.5); Mean Corpuscular Volume 91 fL (80-100); NRBC ABSOLUTE 0.03 K/mm3 (0.00-0.02); NRBC Auto 0.2 /100 WBC (0.0-0.2); Platelet Count 336 K/mm3 (150-400); RDW Standard Deviation 43.4 fL (35.1-46.3); Red Blood Cell Count 2.48 M/mm3 (4.30-5.90); White Blood Cell Count 16.04 K/mm3 (4.00-11.30)
[2018-03-02 04:53] LABS: International Normalized Ratio 2.02; Prothrombin Time Results 20.1 Sec (9.7-11.5)
[2018-03-02 05:03] LABS: Albumin, Blood 2.2 g/dL (3.4-5.0); Anion Gap 7 mmol/L (6-16); Blood Urea Nitrogen 21 mg/dL (8-24); Bun/Creatinine Ratio 16.2 (12.0-20.0); CO2, Blood 31 mmol/L (21-32); Chloride, Blood 101 mmol/L (98-108); Glomerular Filtration Rate 59 (60-); Glucose, Blood 86 mg/dL (70-99); Phosphorus, Blood 3.3 mg/dL (2.5-4.9); Potassium, Blood 3.8 mmol/L (3.5-5.5); Sodium, Blood 139 mmol/L (136-145)
--- NOTE | 2018-03-02 10:36 | NUR ---
SUICIDAL PROTOCOL INITIATED AND PATIENT MOVED TO ROOM 351 IN [facility]. REPORT GIVEN TO PAIGE ALEJANDRE RN AT 0950. PT MOVED VIA WHEELCHAIR AND 2 NITRATING ACID MIXER ESCORT JUST PRIOR TO THIS NOTE. BED IN LOW POSITION, SITTER PRESENT. PT RESTING.
--- NOTE | 2018-03-02 10:51 | NUR ---
PT ARRIVED TO ROOM 351 FROM ROOM 364, A/OX3, PT APPEARS TO BE BREATHING EASILY ON RA AT THIS TIME, PT IS IN SUICIDE PRECAUTIONS AT THIS TIME, SITTER IS AT THE BEDSIDE, REPORT TAKEN FROM TESS THURSTON, PT WAS MEDICATED FOR PAIN
[2018-03-02 12:37] LABS: U Amphetamine Screen Not Detected; U Barbituate Screen Not Detected; U Benzodiazapine Screen Not Detected; U Buprenorphine Screen Not Detected; U Cannabinoids Screen DETECTED; U Cocaine Screen Not Detected; U Methadone Screen Not Detected; U Methamphetamine Screen Not Detected; U Opiates Screen DETECTED; U Oxycodone Screen DETECTED; U Phencyclidine Screen Not Detected; U Propoxyphene Screen Not Detected
--- NOTE | 2018-03-02 13:31 | NUR ---
I JUST RECEIVED A CALL FROM REGARDING HER TELEPSYCH EVALUATION OF BRIANNE. SHE SAYS HE DOES NOT NEED A 1 ON 1 SITTER. HE IS NOT SUICIDAL, WAS JUST VERY FRUSTRATED. NO PSYCH HX. NO PSYCH MEDICATION HX OR NEED. WILL NOTIFY THE NURSING FIELD INVESTIGATOR.
--- NOTE | 2018-03-02 13:45 | NUR ---
WE JUST PRINTED THE PSYCHIATRY REPORT. I SPOKE WITH . SI PRECAUTIONS ARE DC'D.
--- NOTE | 2018-03-02 16:04 | NUR ---
PT IS A/OX3, PLEASANT AND COOPERATIVE, THE PT IS UP WITH ASSIST, USES THE URINAL WHILE IN BED, THE PT WAS INTERVIEWED TODAY BY TELEPSYCH AND WAS DIAGNOSED NOT SUICIDAL, PERCAUTIONS WERE LIFTED, THE PT WAS MEDICATED FOR PAIN T/O THE DAY AND SEEMS TO HAVE ADEQUATE PAIN CONTROL ON THE CURRENT REGIMEN, ORDER TO GIVE COUMADIN TONIGHT FOR THE PTS ATRIAL FIB WAS CONFIRMED WITH DR. MACIAS, THE PT HAD NO VOMITING SO FAR THIS SHIFT, FAMILY AT THE BEDSIDE T/O THE DAY, CALL LIGHT IN REACH, WILL CONTINUE TO MONITO FOR CHANGES
--- NOTE | 2018-03-02 20:54 | NUR ---
PT BP 80/44 AND WAS LOW 70'S/40'S W/PREVIOUS RECORDINGS. PER PCU CLINICAL REHAB LIAISON, HR HAS ALSO TRENDED DOWNWARD, NOW HIGH 50'S-LOW 60'S IN AFIB (BASELINE RHYTHM). CHEMBG CHECKED: 107. PT ASYMPTOMATIC OF CARDIAC DISTRESS W/O ANY EVIDENCE BLEEDING. PT HASN'T HAD BM SO STAFF HAVE BEEN UNABLE TO COLLECT STOOL SPECIMEN. HE REPORTS PAIN BETTER CONTROLLED THEN EVER AND APPEARS COMFORTABLE. MOST RECENT H&H WAS 7.5/22.5 THOUGH RESULTS HAVE BEEN LABILE AND SPONTANEOUSLY FLUCTUATING W/O BLOOD TRANSFUSION. PT ON COUMADIN FOR IRREGULAR RHYTHM AND DAY WAS AWARE OF RECENTLY LOW H/H W/O NEW ORDERS. THESE FINDINGS WERE CONVEYED ALONG W/H&P TO LU (RESIDENTIAL FEE APPRAISER) AND NEW ORDERS RECIEVED: HOLD ALL BP AFFECTING MEDS FOR SBP<100, STAT H&H, DC MORPHINE AND ADD FENTANYL 25-50MCG IV Q4H PRN AND LAY PT FLAT IF ABLE AND RECHECK BP IN 1 HOUR. NO CHANGE TO IVF AT THIS TIME, PT RUNNING NS AT 100 ML/HR W/EJ 35%. WILL MONITOR CLOSELY FOR CHANGES.
[2018-03-02 21:24] LABS: Hematocrit 19.7 % (37.0-53.0); Hemoglobin 6.4 g/dL (13.5-17.5)
--- NOTE | 2018-03-02 22:14 | NUR ---
LU (FORMING MACHINE UPKEEP MECHANIC) NOTIFIED OF BP RE-CHECK 84/45 (LAYING FLAT), HR 60'S-70'S BUT H&H DOWN TO 6.4/19.7. 1 UNIT PRBC'S RX'D STAT W/H&H TO BE DRAWN AFTER. HE ALSO RX'D CXR AND INR IN AM AND INSTRUCTED TO D/C COUMADIN/PHARM CX AT THIS TIME.
--- NOTE | 2018-03-02 22:42 | NUR ---
AWAITING TYPE & CROSS SCREENING BY LAB THEN WILL COMMENCE BLOOD TRANSFUSION. PT REMAINS W/O S/S DISTRESS.
--- NOTE | 2018-03-02 23:15 | NUR ---
LU (DYNAMICS AX DEVELOPER) HERE TO SEE PT AND INSTRUCTED TO T/F PT TO PCU AFTER COMMENCING BLOOD. HE ALSO RX'D PROTONIX 40MG IV NOW X1, LACTIC ACID AND BNP LEVELS W/IVF DC'D AT THIS TIME.
--- NOTE | 2018-03-02 23:34 | NUR ---
1 UNIT PRBC'S VERIFIED W/2ND RN (LELA CAPUTO) AND COMMENCED AT 2328. VSS AT THAT TIME W/O S/S DISTRESS.
--- NOTE | 2018-03-02 23:39 | NUR ---
FENTANYL 50MCG IV PRN RECIEVED AND PT STATED PAIN IS IMPROVING BUT WAS 9/10 IN HIS ABDO PRIOR TO MED.
--- NOTE | 2018-03-02 23:55 | NUR ---
REPORT PROVIDED TO MARLEEN SCREW MACHINE TOOL SETTER AT 8605. PT TO BE T/F'D TO PCU 14.
--- NOTE | 2018-03-03 00:15 | NUR ---
PT T/F'D TO PCU 14 AT 0005 W/BELONGINGS AND PBC'S TRANSFUSING. VITALS WERE STABLE AT THAT TIME AND PT WAS ASYMPTOMATIC OF ACUTE DISTRESS. ABDO PAIN WAS CLIMBINT AGAIN AND WAS UP TO 8/10 W/DIESEL ENGINE FITTER AWARE. PT DENIED NAUSEA/EMESIS.
[2018-03-03 03:17] LABS: BASOPHILS ABSOLUTE AUTO 0.05 K/mm3 (0.00-0.23); BASOPHILS PERCENT AUTO 0 % (0-2); EOSINOPHILS ABSOLUTE AUTO 0.14 K/mm3 (0.00-0.68); EOSINOPHILS PERCENT AUTO 1 % (0-6); Hematocrit 21.2 % (37.0-53.0); Hemoglobin 6.9 g/dL (13.5-17.5); IMMATURE GRAN ABSOLUTE AUTO 0.19 K/mm3 (0.00-0.10); IMMATURE GRAN PERCENT AUTO 1 % (0-1); LYMPHOCYTES ABSOLUTE AUTO 1.04 K/mm3 (0.84-5.20); LYMPHOCYTES PERCENT AUTO 5 % (21-46); MONOCYTES PERCENT AUTO 5 % (4-13); Mean Corpuscular HGB 30.1 pg (26.0-34.0); Mean Corpuscular HGB Conc 32.5 g/dL (31.5-36.5); Mean Corpuscular Volume 93 fL (80-100); Mean Platelet Volume 8.9 fL (9.1-12.4); NEUTROPHILS ABSOLUTE AUTO 16.67 K/mm3 (1.96-9.15); NEUTROPHILS PERCENT AUTO 87 % (41-73); Platelet Count 337 K/mm3 (150-400); RDW Coefficient Variation 16.2 % (11.7-14.2); RDW Standard Deviation 51.7 fL (35.1-46.3); Red Blood Cell Count 2.29 M/mm3 (4.30-5.90); White Blood Cell Count 19.09 K/mm3 (4.00-11.30)
[2018-03-03 03:31] LABS: International Normalized Ratio 2.42; Prothrombin Time Results 23.7 Sec (9.7-11.5)
[2018-03-03 03:34] LABS: Albumin, Blood 1.9 g/dL (3.4-5.0); Anion Gap 7 mmol/L (6-16); Blood Urea Nitrogen 26 mg/dL (8-24); Bun/Creatinine Ratio 17.2 (12.0-20.0); CO2, Blood 26 mmol/L (21-32); Chloride, Blood 106 mmol/L (98-108); Creatinine, Blood 1.51 mg/dL (0.60-1.20); Glomerular Filtration Rate 49 (60-); Glucose, Blood 58 mg/dL (70-99); Potassium, Blood 4.3 mmol/L (3.5-5.5); Sodium, Blood 139 mmol/L (136-145)
--- NOTE | 2018-03-03 03:44 | NUR ---
ASSUMED CARE OF PATIENT AT APPROXIMATELY 0025 FROM MEDICAL FLOOR BERTRAND Cruz. PATIENT ARRIVED TO UNIT VIA STRETCHER WITH ONE UNIT RBC INFUSING; PATIENT REPORTS PAIN TOO SEVERE TO TRANSFER FROM MED FLOOR BED TO PCU BED; TRANSFER VIA SLIDE SHEET AND 4 STAFF. PATIENT ARRIVED TO UNIT DROWSY; WAKES TO VERBAL STIMULUS; ORIENTED TO EVENT AND LOCATION. PATIENT COMPLAINS OF SEVERE ABDOMINAL PAIN; OCCASIONALLY MAKING STATEMENTS "I CANT' DO THIS ONE MORE DAY" ABOUT PAIN. PATIENT DROWSY; WAKES TO VERBAL STIMULUS. AFTER UNIT OF BLOOD TRANSFUSED PATIENT APPEARED MORE ALERT. AFIB ON TELE; RATING UP TO 100'S; PATIENT ARRIVED ON ROOM AIR; PULSE OXIMETRY IN PLACE WHILE BLOOD TRANSFUSING; OXYGEN SATURATION DROPPED TO 84%; 2LPM VIA NC APPLIED; OXYGEN REMAINED ABOVE 90%; PATIENT DENIES SOB. GLUCOSE WITH AM LABS 58; PATIENT GIVEN ORANGE JUICE; WILL RECHECK CBG. HEMOGLOBIN AFTER ONE UNIT RBC 6.9 FROM 6.4; WILL CALL HOSPITALIST. PATIENT URINATES INTO URINAL IN BED; ORANGE COLORED. PG MAGEN. PATIENT CURRENTLY SLEEPING IN BED; CALL LIGHT IN REACH; BED IN LOWEST POSISTION; BED ALARM ON; WILL CONTINUE TO MONITOR AND ASSESS UNTIL END OF SHIFT.
--- NOTE | 2018-03-03 04:35 | NUR ---
AFTER TWO CARTONS OF MILK AND TWO GLASSES OF ORANGE JUICE BLOOD SUGAR UP TO 65; PATIENT REPORTS "FEELS BETTER" AND THINKS HIS BLOOD SUGAR IS GOING UP. WILL RECHECK. CALLED DR. NGUYỄN TO REPORT 6.9 HEMOGLOBIN; ORDERS FOR ONE UNIT RBC.
--- NOTE | 2018-03-03 05:22 | NUR ---
THIS RN STAYING IN ROOM WITH PATIENT FOR FIRST 15 MINUTES DUIRNG RBC INFUSION; NO S/S OF REACTION NOTED; VSS.
--- NOTE | 2018-03-03 08:02 | NUR ---
Medicated for "extreme pain" in pelvis and abdomen, reported to me by patient during bedside report. Pt gave inconsistent answers as to the onset of pain; first, "several days before admission" and second "just since I got here". The pt was lying in bed, with his eyes closed and calm expression on his face when I entered again into the room, pleasantly conversant, asking me How is your day going? I gave him medication for pain medication, he exhibits obvious tremors of his hands when reaching for the cup of water, and tells imaging transporter "Oh, no way, I can't stand or even move around in bed because I'm in so much pain right now." Refused to use wheelchair for transport as he said he could not get up. Pt taken for chest xray by bed.
[2018-03-03 09:34] LABS: U Cannabinoids Screen DETECTED
[2018-03-03 09:35] LABS: U Amphetamine Screen Not Detected; U Barbituate Screen Not Detected; U Benzodiazapine Screen Not Detected; U Buprenorphine Screen Not Detected; U Cocaine Screen Not Detected; U Methadone Screen Not Detected; U Methamphetamine Screen Not Detected; U Opiates Screen DETECTED; U Oxycodone Screen DETECTED; U Phencyclidine Screen Not Detected; U Propoxyphene Screen Not Detected
--- NOTE | 2018-03-03 13:17 | NUR ---
The pt states that his pain is intolerable. This morning he has been napping intermittently except when he needs to void or when someone is present in the room. Currently a best friend is visiting, and the pt states that he can only take Tylenol for pain at home for his chronic shoulder pain. The pt's blood pressure has stabilized and is no longer too low to administer IV narcotics which are ordered PRN pain. Tells his friend that the nurse doesn't care about his pain. I explained that he had been given the max dose ordered of oral pain medication first thing this morning, but that an hour later his blood pressure was very low, so low that his cardiac medications had to be held, so despite the pt's ongoing pain we were unable to administer anything else for pain. (That and the fact that the pt readily fell asleep when staff were still in the room, but had stopped talking with him, and was sleeping unless awakened by staff.) At this time, the pt's blood pressure has stabilized and IV morphine was administered for relief. However, now 20 minutes later he is no longer shaking, no longer wincing, and is carrying on normal conversation with the friend at the bedside, without any observable evidence of pain. He reports that he has noticed no difference at all in his level of pain, rating it still as severe at 9/10.
--- NOTE | 2018-03-03 13:47 | NUR ---
Dr. Zapata here to see the patient. The pt's pain is exacerbated when he voids. Pyridium is being given as ordered.
--- NOTE | 2018-03-03 14:39 | NUR ---
The pt appears to be sleeping soundly. He is snoring softly, respirations even and unlabored, about 10/min. Color pink. HOB is elevated 30 degrees.
[2018-03-03 14:59] LABS: Albumin/Globulin Ratio 0.6 (0.8-1.8); Bilirubin, Direct 0.1 mg/dL (0.0-0.3); Bilirubin, Indirect 0.4 mg/dL (0.1-0.7); Bilirubin, Total 0.5 mg/dL (0.1-1.0); Globulin, Blood 3.5 g/dL (2.2-4.0); Total Protein, Blood 5.5 g/dL (6.4-8.2)
--- NOTE | 2018-03-03 15:25 | NUR ---
The pt appeared to be sleeping soundly when I entered the room. He did not awaken immediately, but after gentle verbal stimulation, he did awaken. I asked him how his pain was and he said that had not gotten any better, even after the IV morphine. He does not have any shaking of his extremities but when he reaches for the oral medication and cup of water he shakes, but then has no shaking when drinking or putting the medication into his mouth. He moans and says that the pain is bad while I am in the room. When I am outside of the room, he appears to fall asleep again. Difficult to assess his perception of the pain. Call to Dr. Young at this time to inform him that the patient is still c/o pain. New order for conservative use of IBuprofen for relief.
--- NOTE | 2018-03-03 16:34 | NUR ---
The pt is lying on his left side, eyes closed, no wincing, no bracing, no restlessness. Respirations are even and unlabored. IVPB disconected as infusion is complete. Pt states that he has no relief even after the ibuprofen earlier.
--- NOTE | 2018-03-03 18:13 | NUR ---
Pt awakens when I speak to him. As I am preparing his medications, he is appearing to nod off to sleep, head bobbing down, chin to chest, eyes closed, occasional small twitch of arm or hand, but no tremors, and respirations even, slow, unlabored. When awakened he moans and says that he is still in pain. Falls asleep quickly after taking scheduled medications at this time.
[2018-03-03 21:36] LABS: Vancomycin, Trough 21.7 ug/mL (5.0-10.0)
[2018-03-03 23:24] LABS: Adenovirus Not Detected (NOT DETECT); Bordetella pertussis Not Detected (NOT DETECT); Chlamydophila pneumoniae Not Detected (NOT DETECT); Coronavirus 229E Not Detected (NOT DETECT); Coronavirus HKU1 Not Detected (NOT DETECT); Coronavirus NL63 Not Detected (NOT DETECT); Coronavirus OC43 Not Detected (NOT DETECT); Human Metapneumovirus Not Detected (NOT DETECT); Human Rhinovirus/Enterovirus Not Detected (NOT DETECT); Influenza A Not Detected (NOT DETECT); Influenza A/2009-H1 Not Detected (NOT DETECT); Influenza A/H1 Not Detected (NOT DETECT); Influenza A/H3 Not Detected (NOT DETECT); Influenza B Not Detected (NOT DETECT); Mycoplasma pneumoniae Not Detected (NOT DETECT); Parainfluenza Virus 1 Not Detected (NOT DETECT); Parainfluenza Virus 2 Not Detected (NOT DETECT); Parainfluenza Virus 3 Not Detected (NOT DETECT); Parainfluenza Virus 4 Not Detected (NOT DETECT); Respiratory Syncytial Virus Not Detected (NOT DETECT)
[2018-03-04 05:51] LABS: BASOPHILS ABSOLUTE AUTO 0.04 K/mm3 (0.00-0.23); BASOPHILS PERCENT AUTO 0 % (0-2); EOSINOPHILS ABSOLUTE AUTO 0.12 K/mm3 (0.00-0.68); EOSINOPHILS PERCENT AUTO 1 % (0-6); Hematocrit 23.4 % (37.0-53.0); Hemoglobin 7.6 g/dL (13.5-17.5); IMMATURE GRAN ABSOLUTE AUTO 0.23 K/mm3 (0.00-0.10); IMMATURE GRAN PERCENT AUTO 2 % (0-1); LYMPHOCYTES ABSOLUTE AUTO 1.19 K/mm3 (0.84-5.20); LYMPHOCYTES PERCENT AUTO 9 % (21-46); MONOCYTES ABSOLUTE AUTO 0.96 K/mm3 (0.16-1.47); MONOCYTES PERCENT AUTO 7 % (4-13); Mean Corpuscular HGB 28.9 pg (26.0-34.0); Mean Corpuscular HGB Conc 32.5 g/dL (31.5-36.5); Mean Platelet Volume 9.6 fL (9.1-12.4); NEUTROPHILS ABSOLUTE AUTO 11.41 K/mm3 (1.96-9.15); NEUTROPHILS PERCENT AUTO 82 % (41-73); Platelet Count 360 K/mm3 (150-400); RDW Coefficient Variation 16.3 % (11.7-14.2); RDW Standard Deviation 51.1 fL (35.1-46.3); Red Blood Cell Count 2.63 M/mm3 (4.30-5.90); White Blood Cell Count 13.95 K/mm3 (4.00-11.30)
[2018-03-04 05:53] LABS: Mean Corpuscular Volume 89 fL (80-100)
[2018-03-04 06:17] LABS: Magnesium, Blood 1.7 mg/dL (1.6-2.4)
[2018-03-04 06:18] LABS: Albumin, Blood 1.9 g/dL (3.4-5.0); Anion Gap 10 mmol/L (6-16); Blood Urea Nitrogen 31 mg/dL (8-24); Bun/Creatinine Ratio 17.4 (12.0-20.0); CO2, Blood 25 mmol/L (21-32); Calcium, Blood 7.2 mg/dL (8.5-10.1); Chloride, Blood 100 mmol/L (98-108); Creatinine, Blood 1.78 mg/dL (0.60-1.20); Glomerular Filtration Rate 41 (60-); Glucose, Blood 285 mg/dL (70-99); Phosphorus, Blood 2.6 mg/dL (2.5-4.9); Potassium, Blood 4.2 mmol/L (3.5-5.5); Sodium, Blood 135 mmol/L (136-145)
--- NOTE | 2018-03-04 06:34 | NUR ---
UPDATE: DR NGUYỄN NOTIFIED THAT PATIENT'S HGB WAS 7.6 THIS AM. NO ORDERS GIVEN AT THIS TIME.
--- NOTE | 2018-03-04 07:26 | NUR ---
SHIFT SUMMARY PATIENT PLEASENT AND COOPERATIVE THROUGHOUT THE NIGHT. PATIENT MEDICATED FOR PAIN PER EMAR AND TOLERATED BY HIS BLOOD PRESSURE. PATIENT APPEARED TO EASILY FALL ASLEEP AND APPEARED TO BE COMFORTABLE WHILE SLEEPING. PATIENT APPEARED TO NAP ON AND OFF THROUGHOUT THE NIGHT. VITAL SIGNS CHARTED REPORT GIVEN TO ONCOMING RN.
--- NOTE | 2018-03-04 07:34 | NUR ---
Pt called, asking for pain medication. States "I'm in extreme pain. If they gave me anything, I can't tell. I don't know if they gave me anything for pain. All I know is that I'm in extreme pain." Told pt I would be in shortly to see him.
--- NOTE | 2018-03-04 07:58 | NUR ---
PT is c/o abdominal generalized pain. Yelling, shouting, then apologizing afterwards for "being such a pain". Vigorously changing positioning in bed, then shouts that he is in pain. Bladder scan done and found 400. The pt started yelling, "NO I don't want to have a catheter, no please don't hurt me, oh no," etc. He was then able to void 300 cc but repeat post void residual is 319 cc.
--- NOTE | 2018-03-04 08:21 | NUR ---
At times, the pt appears to be pain free and is conversant and exhibiting no wincing, bracing, restlessness or statements of pain. Then he will shout and cry out and say his pain is extreme. At this time he tells me that his abdomen has a constant dull ache, and the sharp pain in his pelvis is constant as well. He is asking for whole milk, orange juice and taking his pills without difficulty at this time with those drinks.
--- NOTE | 2018-03-04 09:26 | NUR ---
Spoke with the hospitalist this morning regarding concerns of ongoing c/o pain in pelvis and abdomen, despite medication administration and pt's intermittent appearance of comfort, and sleeping. Reported bladder scan results and lack of BM; new orders received.
--- NOTE | 2018-03-04 11:01 | NUR ---
Pt is cheerful, pleasant and very chatty, smiling and states that he is still having pain 7/10, quite severe, but that some improvement made. After IV morphine he states that it is improved to 5/10. He then offers unsolicited commentary about his views on bureaucrats making it impossible for outpatients to get narcotic pain medication. He expressed frustration that this is the case for himself. States that his chronic pain involves a right shoulder, which at present is 2/10 pain level, the best that it ever gets, he says.
--- NOTE | 2018-03-04 12:15 | NUR ---
Encouraged the pt to increase mobility now that he is feeling less painful. He readily agreed to this, Encouraged specifically OOB to bathroom, OOB to chair for meals, walking as tolerated, and use of incentive spirometer.
[2018-03-04 13:41] LABS: International Normalized Ratio 1.94; Prothrombin Time Results 19.4 Sec (9.7-11.5)
--- NOTE | 2018-03-04 15:16 | NUR ---
The pt has been appearing much more comfortable today. This afternoon c/o moderate pain. NO shaking, no bracing, no yelling, no crying, no restlessness. States pain 5/10; gave ibuprofen as ordered which gave him considerable relief this morning and afternoon so far. He told the FREIGHT ASSOCIATE that he is angry because the doctor did not order oral morphine for him; and yet he is getting better relief with ibuprofen today than he did in the past 2 days with any narcotic pain relief. Blood pressure noted moderately low. The pt states that he has not made any attempts to sit on side of bed today; states he just wants to rest a little bit first.
--- NOTE | 2018-03-04 17:44 | NUR ---
Encouraged activity as tolerated. Pt refused to sit on side of bed or to get up to the chair for his meals. States "Maybe later" or "I think I just need to rest a bit first" "I want to be good and ready". Emphasized the importance of increasing his activity level in order to prevent a pneumonia from developing or increasing weakness and also to help his constipation. He verbalized understanding, but does not follow through with his stated intention of increasing activity. At this time he states that his pain is tolerable, after he got IV morphine. Readily sitting up eating dinner tray, states that he has a good appetite.
--- NOTE | 2018-03-04 20:15 | NUR ---
PM NOTE. ASSUMED CARE OF PT APROX 1900. PT IS A&Ox4, PLEASENT AND COOPERATIVE WITH CARE. PT WAS ADMITTED DUE TO SEPSIS, PT'S IV ANTIBIOTICS AND FLUIDS ARE RUNNING PER ORDERS. TELE INTACT, AFIB IN THE 70'S-80'S PER SPECIAL DELIVERY CLERK. PT'S BP 111/70. PT HAS 2+ EDEMA TO HIS ARMS, AND LEGS BILAT. PT STATES THAT THIS HAS IMPROVED SOME SINCE THIS AM. L/S CLEAR T/O RR EVEN AND UNLABORED ON RA WITH STATS IN THE 90'S. BT PRESENT AND HYEPRACTIVE, PT STATES NO BM x3 DAYS, BOWEL CARE STARTED THIS AM, ABD IS SLIGHTLY DISTENED, FIRM AND PT STATES TENDER TO PALP. PT COMPLAINS OF SEVERE PAIN TO LOWER, MIDLINE ABD AREA "RIGHT ABOVE MY PENIS." PT WAS MEDICATED PER EMAR WITH GOOD RESULTS. PT VOIDING SMALL AMOUNTS OF ORANGE URINE FREQUENTLY. CALL LIGHT IN REACH, BED IS LOCKED AND LOW, WILL CONTINUE TO MONITOR.
[2018-03-05 02:13] LABS: HIV SCREEN 4TH GENERATION WRFX Non Reactive (Non Reactive)
[2018-03-05 04:55] LABS: BASOPHILS ABSOLUTE AUTO 0.05 K/mm3 (0.00-0.23); BASOPHILS PERCENT AUTO 0 % (0-2); EOSINOPHILS ABSOLUTE AUTO 0.19 K/mm3 (0.00-0.68); EOSINOPHILS PERCENT AUTO 2 % (0-6); Hematocrit 24.1 % (37.0-53.0); Hemoglobin 7.6 g/dL (13.5-17.5); IMMATURE GRAN ABSOLUTE AUTO 0.19 K/mm3 (0.00-0.10); IMMATURE GRAN PERCENT AUTO 2 % (0-1); LYMPHOCYTES ABSOLUTE AUTO 1.37 K/mm3 (0.84-5.20); LYMPHOCYTES PERCENT AUTO 11 % (21-46); MONOCYTES ABSOLUTE AUTO 0.89 K/mm3 (0.16-1.47); MONOCYTES PERCENT AUTO 7 % (4-13); Mean Corpuscular HGB Conc 31.5 g/dL (31.5-36.5); Mean Platelet Volume 9.4 fL (9.1-12.4); NEUTROPHILS ABSOLUTE AUTO 9.53 K/mm3 (1.96-9.15); NEUTROPHILS PERCENT AUTO 78 % (41-73); Platelet Count 408 K/mm3 (150-400); RDW Coefficient Variation 15.6 % (11.7-14.2); RDW Standard Deviation 50.8 fL (35.1-46.3); Red Blood Cell Count 2.62 M/mm3 (4.30-5.90); White Blood Cell Count 12.22 K/mm3 (4.00-11.30)
[2018-03-05 05:01] LABS: Mean Corpuscular Volume 92 fL (80-100)
[2018-03-05 05:09] LABS: International Normalized Ratio 1.69; Prothrombin Time Results 17.1 Sec (9.7-11.5)
[2018-03-05 05:11] LABS: Albumin, Blood 1.8 g/dL (3.4-5.0); Anion Gap 7 mmol/L (6-16); Blood Urea Nitrogen 30 mg/dL (8-24); Bun/Creatinine Ratio 19.5 (12.0-20.0); CO2, Blood 27 mmol/L (21-32); Calcium, Blood 7.4 mg/dL (8.5-10.1); Chloride, Blood 104 mmol/L (98-108); Creatinine, Blood 1.54 mg/dL (0.60-1.20); Glomerular Filtration Rate 48 (60-); Glucose, Blood 139 mg/dL (70-99); Magnesium, Blood 1.8 mg/dL (1.6-2.4); Phosphorus, Blood 2.3 mg/dL (2.5-4.9); Potassium, Blood 4.1 mmol/L (3.5-5.5); Sodium, Blood 138 mmol/L (136-145)
--- NOTE | 2018-03-05 06:35 | NUR ---
SHIFT SUMMARY. NO ACUTE CHANGES NOTED THIS SHIFT. PT HAS BEEN VOIDING SMALL AMOUNTS (50MLS-150MLS) APROX Q HOUR, LATEST BLADDER SCAN SHOW 250MLS PVR. PT HAS COMPLAINED OF SEVERE PAIN T/O THIS SHIFT, PT HAS BEEN MEDICATED FOR PAIN PER EMAR, HOWEVER PT STATES THAT HIS PAIN HAS NOT BEEN WELL CONTROLLED WITH CURRENT MEDS. PT WAS ENCOURAGED TO GET UP AND SIT IN A CHAIR FOR MEALS TO HELP PROMOTE MOBILITY AND IMPROVE BOWEL FUNCTION, PT STATED THAT HE "REALLY WANTED TO BUT I NEED TO WAIT UNTIL I FEEL BETTER AND HAVE LESS PAIN." PT'S VS HAVE BEEN STABLE T/O THIS SHIFT. WITH NO EVENTS ON TELE. CALL LIGHT IN REACH, BED IS LOCKED AND LOW WILL CONTINUE TO MONITOR UNTIL REPORT IS GIVEN TO ONCOMING RN.
--- NOTE | 2018-03-05 16:30 | NUR ---
HE HAD A LONG WALK IN THE [facility] TODAY WITH A WALKER AND SBA. IVF'S CONTINUE. AFEBRILE. TELE STILL AFIB. CBG AT LUNCHTIME 303.NO C/O DIZZINESS. HE HAS TAKEN PERCOCET FOR HIS ABD PAIN TODAY. NO BM. HE KNOWS WE NEED A SAMPLE TO THE LAB THE NEXT TIME HE HAS A BM.
--- NOTE | 2018-03-05 17:51 | NUR ---
HE HAS A VISITOR NOW. HE WANTS TO GO FOR ANOTHER WALK WHEN HE FINISHES HIS DINNER. HE DRANK A LITTLE PRUNE JUICE THIS EVENING TO HELP WITH A BM. HE HAS TAKEN PERCOCET ABOUT EVERY 4 HRS TODAY. INSULIN SS INCREASED THIS EVENING. NO OTHER CHANGES.
--- NOTE | 2018-03-05 21:41 | NUR ---
ASSUMED CARE OF PATIENT AT APPROXIMATELY 1905 FROM VERENICE Andrade RN. PATIENT ALERT AND ORIENTED X4; PATIENT COMPLAINS OF PAIN IN ABDOMEN AT SHIFT CHANGE; OFF GOING RN MEDICATED PER EMAR. PATIENT DENIES NUMBNESS, TINGLING, DIZZINESS AND NAUSEA. AFIB ON TELE W/ A RATE OF 80-90'S; OXYGEN SATURATION ABOVE 90% ON ROOM AIR. PATIENT RESTS IN BETWEEN CARE ROUNDING. PATIENT WAS RETURNING FROM AMBULATING HALLS INDEPENDENTLY WITH FRIEND; STEADY ON FEET. URINATES INTO URINAL BEDSIDE; IVF INFUSING PER ORDER INTO MAGEN POWERGLIDE. SCDS IN PLACE. PATIENT CURRENTLY SLEEPING IN BED; CALL LIGHT IN REACH; BED IN LOWEST POSISTION; WILL CONTINUE TO MONITOR AND ASSESS UNTIL END OF SHIFT.
[2018-03-06 09:04] LABS: BASOPHILS ABSOLUTE AUTO 0.07 K/mm3 (0.00-0.23); BASOPHILS PERCENT AUTO 1 % (0-2); EOSINOPHILS ABSOLUTE AUTO 0.15 K/mm3 (0.00-0.68); EOSINOPHILS PERCENT AUTO 1 % (0-6); Hemoglobin 8.7 g/dL (13.5-17.5); IMMATURE GRAN ABSOLUTE AUTO 0.12 K/mm3 (0.00-0.10); IMMATURE GRAN PERCENT AUTO 1 % (0-1); LYMPHOCYTES ABSOLUTE AUTO 1.13 K/mm3 (0.84-5.20); LYMPHOCYTES PERCENT AUTO 9 % (21-46); MONOCYTES ABSOLUTE AUTO 0.74 K/mm3 (0.16-1.47); MONOCYTES PERCENT AUTO 6 % (4-13); Mean Corpuscular HGB 29.9 pg (26.0-34.0); Mean Corpuscular HGB Conc 32.2 g/dL (31.5-36.5); Mean Corpuscular Volume 93 fL (80-100); Mean Platelet Volume 8.7 fL (9.1-12.4); NEUTROPHILS ABSOLUTE AUTO 10.58 K/mm3 (1.96-9.15); NEUTROPHILS PERCENT AUTO 83 % (41-73); Platelet Count 452 K/mm3 (150-400); RDW Coefficient Variation 15.4 % (11.7-14.2); RDW Standard Deviation 51.3 fL (35.1-46.3); Red Blood Cell Count 2.91 M/mm3 (4.30-5.90); White Blood Cell Count 12.79 K/mm3 (4.00-11.30)
[2018-03-06 09:29] LABS: Albumin, Blood 1.9 g/dL (3.4-5.0); Anion Gap 7 mmol/L (6-16); Blood Urea Nitrogen 29 mg/dL (8-24); Bun/Creatinine Ratio 19.1 (12.0-20.0); CO2, Blood 27 mmol/L (21-32); Calcium, Blood 7.7 mg/dL (8.5-10.1); Chloride, Blood 101 mmol/L (98-108); Creatinine, Blood 1.52 mg/dL (0.60-1.20); Glomerular Filtration Rate 49 (60-); Glucose, Blood 299 mg/dL (70-99); Phosphorus, Blood 2.7 mg/dL (2.5-4.9); Potassium, Blood 4.5 mmol/L (3.5-5.5); Sodium, Blood 135 mmol/L (136-145)
[2018-03-06 09:43] LABS: International Normalized Ratio 1.91; Prothrombin Time Results 19.1 Sec (9.7-11.5)
[2018-03-06] MEDS ORDERED: ACET325 PO (12:46)
[2018-03-06] MEDS ORDERED: Bisac-Evac10 MG PR (12:47)
[2018-03-06] MEDS ORDERED: CALCIUM WITH V1 EACH PO (12:48)
[2018-03-06] MEDS ORDERED: DILT30 PO (13:26)
[2018-03-06] MEDS ORDERED: DOCU100 PO (13:27)
[2018-03-06] MEDS ORDERED: FLONASE ALLERG9.9 ML (13:28)
[2018-03-06] MEDS ORDERED: VISBIOME 112.51 EACH PO (13:30)
[2018-03-06] MEDS ORDERED: Percocet 5-3251 EACH PO (13:31)
[2018-03-06] MEDS ORDERED: ONDA4ODT SL (13:32)
[2018-03-06] MEDS ORDERED: GAVILAX17 GM PO (13:34)
[2018-03-06] MEDS ORDERED: PROM25 PO (13:34)
[2018-03-06] MEDS ORDERED: INSULANPEN SC (14:43)
[2018-03-06] MEDS ORDERED: Humalog100 UNIT/3 SC (14:46)
--- NOTE | 2018-03-06 18:41 | NUR ---
PT DISCHARGED PT DISCHARGED TO HOME, ALL MEDS AND DISCHARGE PLAN DISCUSSED WITH THE PT, VSS, PT IN STABLE CONDITION ALL IV REMOVED
== END 2018-03-06 15:32 | disposition home or self-care (01) | DRG 871 ==
LOC: ER 11:24 → ICUE 13:52 → MEDS 13:52 → PCU 13:52 → ICUE 16:27 → PCU 02-24 18:12 → MEDS 02-27 16:27 → PCU 03-03 00:14
PROVIDERS: Emergency Medicine; Family Medicine; Internal Medicine Infectious Disease; Internal Medicine Nephrology; Nurse Practitioner Acute Care; Pharmacist Pharmacotherapy; Physician Assistant; ADMIT Internal Medicine
PROC: 30233N1 Transfusion of Nonautologous Red Blood Cells into Peripheral Vein, Percutaneous Approach (ICD-10-PCS; 2018-02-27)
PROC: 30233N1 Transfusion of Nonautologous Red Blood Cells into Peripheral Vein, Percutaneous Approach (ICD-10-PCS; 2018-03-02)
PROC: 30233N1 Transfusion of Nonautologous Red Blood Cells into Peripheral Vein, Percutaneous Approach (ICD-10-PCS; principal; 2018-03-03)
DX: A41.51 Sepsis due to Escherichia coli [E. coli] (principal); N17.0 Acute kidney failure with tubular necrosis; J90 Pleural effusion, not elsewhere classified; I13.0 Hypertensive heart and chronic kidney disease with heart failure and stage 1 through stage 4 chronic kidney disease, or unspecified chronic kidney disease; R18.8 Other ascites; R45.851 Suicidal ideations; N10 Acute pyelonephritis; J98.11 Atelectasis; I50.42 Chronic combined systolic (congestive) and diastolic (congestive) heart failure; I95.9 Hypotension, unspecified; E11.22 Type 2 diabetes mellitus with diabetic chronic kidney disease; I48.2 Chronic atrial fibrillation; E11.649 Type 2 diabetes mellitus with hypoglycemia without coma; E88.09 Other disorders of plasma-protein metabolism, not elsewhere classified; E83.39 Other disorders of phosphorus metabolism; Z16.11 Resistance to penicillins; Z16.29 Resistance to other single specified antibiotic; K59.00 Constipation, unspecified; N18.9 Chronic kidney disease, unspecified; D64.9 Anemia, unspecified; E87.6 Hypokalemia; F10.21 Alcohol dependence, in remission; N40.1 Benign prostatic hyperplasia with lower urinary tract symptoms; F43.20 Adjustment disorder, unspecified; I25.10 Atherosclerotic heart disease of native coronary artery without angina pectoris; R79.1 Abnormal coagulation profile; Z79.01 Long term (current) use of anticoagulants; Z79.4 Long term (current) use of insulin; Z79.899 Other long term (current) drug therapy; Z95.2 Presence of prosthetic heart valve; Z87.891 Personal history of nicotine dependence; Z87.442 Personal history of urinary calculi
CPT/HCPCS: 36415; 36430; 51702; 71046; 71250; 74018; 74176; 76770; 80048; 80053; 80069; 80076; 80202; 81001; 82150; 82947; 83036; 83605; 83690; 83735; 83880; 84132; 84145; 85014; 85018; 85025; 85027; 85610; 86850; 86900; 86901; 86923; 87040; 87077; 87086; 87186; 87389; 87486; 87581; 87633; 87798; 87804; 94640; 96361; 96365; 96366; 96375; 99285-25; C1751; C9113; J0610; J0692; J0696; J0881; J1940; J1956; J2270; J2405; J2550; J3010; J3370; J3480; J7030; J7050; J7060; J7120; P9016

== ENCOUNTER 2018-04-30 00:01 | Inpatient (IN) | payer MEDICARE, OTHER ==
[~2018-04-30] VITALS: Ht 182.9 cm; Wt 72.9 kg
[~2018-04-30 00:01] MED LIST changes: +ACET325 PO; +Bactrim 400-801 EACH PO; +Bisac-Evac10 MG PR; +CALCIUM WITH V1 EACH PO; +DILT30 PO; +DOCU100 PO; +FLONASE ALLERG9.9 ML; +GAVILAX17 GM PO; +Humalog100 UNIT/3 SC; +INSUGL100V SC; +Lisinopril2.5 MG; +METO100ER PO; +ONDA4ODT SL; +PROM25 PO; +Percocet 5-3251 EACH PO; +TAMS.4ER PO; +VISBIOME 112.51 EACH PO
[2018-04-30 00:20] LABS: Calcium, Ionized (POC) 0.94 mmol/L (1.10-1.46); Chloride (POC) 92 mmol/L (98-108); Creatinine (POC) 2.4 mg/dL (0.8-1.3); Glucose (ISTAT POC) 540 mg/dL (70-99); Hemoglobin (POC) 12.6 g/dL (13.5-17.5); Potassium (POC) 3.5 mmol/L (3.5-5.5); Sodium (POC) 126 mmol/L (135-148); Total CO2 (POC) 18 mmol/L (21-32)
[2018-04-30 00:32] LABS: BASOPHILS ABSOLUTE AUTO 0.04 K/mm3 (0.00-0.23); BASOPHILS PERCENT AUTO 1 % (0-2); EOSINOPHILS ABSOLUTE AUTO 0.05 K/mm3 (0.00-0.68); EOSINOPHILS PERCENT AUTO 1 % (0-6); Hematocrit 36.9 % (37.0-53.0); Hemoglobin 12.5 g/dL (13.5-17.5); IMMATURE GRAN ABSOLUTE AUTO 0.02 K/mm3 (0.00-0.10); IMMATURE GRAN PERCENT AUTO 0 % (0-1); LYMPHOCYTES ABSOLUTE AUTO 0.94 K/mm3 (0.84-5.20); LYMPHOCYTES PERCENT AUTO 18 % (21-46); MONOCYTES ABSOLUTE AUTO 0.27 K/mm3 (0.16-1.47); MONOCYTES PERCENT AUTO 5 % (4-13); Mean Corpuscular HGB 28.1 pg (26.0-34.0); Mean Corpuscular HGB Conc 33.9 g/dL (31.5-36.5); Mean Corpuscular Volume 83 fL (80-100); Mean Platelet Volume 10.4 fL (9.1-12.4); NEUTROPHILS ABSOLUTE AUTO 3.91 K/mm3 (1.96-9.15); NEUTROPHILS PERCENT AUTO 75 % (41-73); Platelet Count 260 K/mm3 (150-400); RDW Coefficient Variation 13.2 % (11.7-14.2); Red Blood Cell Count 4.45 M/mm3 (4.30-5.90); White Blood Cell Count 5.23 K/mm3 (4.00-11.30)
[2018-04-30 00:42] LABS: Albumin, Blood 2.7 g/dL (3.4-5.0); Albumin/Globulin Ratio 0.7 (0.8-1.8); Bilirubin, Total 0.5 mg/dL (0.1-1.0); Bun/Creatinine Ratio 13.5 (12.0-20.0); Calcium, Blood 7.9 mg/dL (8.5-10.1); Creatinine, Blood 2.29 mg/dL (0.60-1.20); Globulin, Blood 3.7 g/dL (2.2-4.0); Potassium, Blood 3.4 mmol/L (3.5-5.5); Total Protein, Blood 6.4 g/dL (6.4-8.2)
[2018-04-30 00:56] LABS: Beta-hydroxybutyrate 32.9 mg/dL (0.2-2.8)
[2018-04-30 05:56] LABS: International Normalized Ratio 1.66; Prothrombin Time Results 16.8 Sec (9.7-11.5)
[2018-04-30 06:01] LABS: Hematocrit 33.3 % (37.0-53.0); Hemoglobin 11.4 g/dL (13.5-17.5); Mean Corpuscular HGB 28.1 pg (26.0-34.0); Mean Corpuscular HGB Conc 34.2 g/dL (31.5-36.5); Mean Corpuscular Volume 82 fL (80-100); Mean Platelet Volume 9.3 fL (9.1-12.4); Platelet Count 249 K/mm3 (150-400); RDW Coefficient Variation 13.2 % (11.7-14.2); RDW Standard Deviation 39.7 fL (35.1-46.3); Red Blood Cell Count 4.06 M/mm3 (4.30-5.90); White Blood Cell Count 5.26 K/mm3 (4.00-11.30)
[2018-04-30 06:18] LABS: Albumin, Blood 2.5 g/dL (3.4-5.0); Albumin/Globulin Ratio 0.8 (0.8-1.8); Bilirubin, Total 0.3 mg/dL (0.1-1.0); Bun/Creatinine Ratio 14.8 (12.0-20.0); Calcium, Blood 7.4 mg/dL (8.5-10.1); Creatinine, Blood 2.1 mg/dL (0.60-1.20); Globulin, Blood 3.2 g/dL (2.2-4.0); Total Protein, Blood 5.7 g/dL (6.4-8.2)
[2018-04-30 07:04] LABS: Source, Urine Clean Catch
[2018-04-30 07:13] LABS: Bilirubin, Urine Neg (Neg); Blood, Urine Neg (Neg); Glucose Qualitative, Urine 4+ (Neg); Ketones, Urine Neg (Neg); Leukocyte Esterase, Urine Neg (Neg); Nitrite, Urine Neg (Neg); Protein, Urine Neg (Neg); Urobilinogen, Urine NORM (Normal)
[2018-04-30 07:29] LABS: Appearance, Urine Clear (Clear); Color, Urine Yellow (P-Yellow)
[2018-04-30 07:30] LABS: U Amphetamine Screen Not Detected; U Barbituate Screen Not Detected; U Benzodiazapine Screen Not Detected; U Buprenorphine Screen Not Detected; U Cannabinoids Screen DETECTED; U Cocaine Screen Not Detected; U Methadone Screen Not Detected; U Methamphetamine Screen Not Detected; U Opiates Screen Not Detected; U Oxycodone Screen Not Detected; U Phencyclidine Screen Not Detected; U Propoxyphene Screen Not Detected
[2018-04-30] MEDS ORDERED: Humalog100 UNIT/1 SC (08:38)
[2018-04-30] MEDS ORDERED: METO50ER PO (08:40)
[2018-04-30 10:37] LABS: Bun/Creatinine Ratio 14.6 (12.0-20.0); Calcium, Blood 7.7 mg/dL (8.5-10.1); Creatinine, Blood 1.99 mg/dL (0.60-1.20); Potassium, Blood 3.2 mmol/L (3.5-5.5)
--- NOTE | 2018-04-30 10:44 | NUR ---
0749-RECEIVED THIS PATIENT FROM ER WITH A DIAGNOSIS OF HYPERGLYCEMIA. PT IS ALERT AND ORIENTED. PT IS ABLE TO TRANSFER FROM ER BED TO ICU BED. PT IS ON INSULIN DRIP @ 4 UNITS/HR ORDERED. DENIES NO NAUSEA AND VOMITING. 0810-PT SEEN BY DR. NGUYỄN UPDATED HIM OF PT'S STATUS.
--- NOTE | 2018-04-30 11:06 | NUR ---
DR. NGUYỄN WAS NOTIFIED REGARDING PT'S 1000AM LAB RESULTS. INFORMED HIM PT REGARDING PT'S ABDOMINAL PAIN. NOTED ABDOMINAL PAIN IS NOTED WHEN PT IS WAKES UP AND STARTS MOVING. ORDERS RECEIVED.
[2018-04-30 11:49] LABS: Adenovirus Not Detected (NOT DETECT); Bordetella pertussis Not Detected (NOT DETECT); Chlamydophila pneumoniae Not Detected (NOT DETECT); Coronavirus 229E Not Detected (NOT DETECT); Coronavirus HKU1 Not Detected (NOT DETECT); Coronavirus NL63 Not Detected (NOT DETECT); Coronavirus OC43 Not Detected (NOT DETECT); Human Metapneumovirus Not Detected (NOT DETECT); Human Rhinovirus/Enterovirus Not Detected (NOT DETECT); Influenza A Not Detected (NOT DETECT); Influenza A/2009-H1 Not Detected (NOT DETECT); Influenza A/H1 Not Detected (NOT DETECT); Influenza A/H3 Not Detected (NOT DETECT); Influenza B Not Detected (NOT DETECT); Mycoplasma pneumoniae Not Detected (NOT DETECT); Parainfluenza Virus 1 Not Detected (NOT DETECT); Parainfluenza Virus 2 Not Detected (NOT DETECT); Parainfluenza Virus 3 Not Detected (NOT DETECT); Parainfluenza Virus 4 Not Detected (NOT DETECT); Respiratory Syncytial Virus Not Detected (NOT DETECT)
--- NOTE | 2018-04-30 13:17 | NUR ---
DR. NGUYỄN WAS NOTIFIED REGARDING PT'S BLOOD PRESSURE FROM LOW 80s-110s SYSTOLIC. NO IV BOLUSES ORDERS WERE PLACED. CBC WILL BE RECHECKED@ 1600. ORDERS TO CONTINUE WARFARIN DESPITE COFFE GROUND EMESIS NOTED FROM ADMIT. ORDERS RECEIVED TO ADVANCE PT'S DIET TOLERATED. PT STILL COMPLAINTS OF ABDOMINAL PAIN. PT HAS STATED TYLENOL "IS A PLACEBO, DOES NOT REALLY HELP ANYTHING."
--- NOTE | 2018-04-30 16:25 | NUR ---
PT WOKE UP THIS AFTERNOON WITH ABDOMINAL PAIN. PT STATED THAT THE PAIN WENT AWAY AND NOW IT CAME BACK. PT IS ON 1 UNIT OF INSULIN WITH D5 1/2NS @ 150ML/HR.
[2018-04-30 16:44] LABS: BASOPHILS ABSOLUTE AUTO 0.03 K/mm3 (0.00-0.23); BASOPHILS PERCENT AUTO 1 % (0-2); EOSINOPHILS ABSOLUTE AUTO 0.11 K/mm3 (0.00-0.68); EOSINOPHILS PERCENT AUTO 2 % (0-6); Hematocrit 37.5 % (37.0-53.0); Hemoglobin 12.8 g/dL (13.5-17.5); IMMATURE GRAN ABSOLUTE AUTO 0.02 K/mm3 (0.00-0.10); IMMATURE GRAN PERCENT AUTO 0 % (0-1); LYMPHOCYTES ABSOLUTE AUTO 1.44 K/mm3 (0.84-5.20); LYMPHOCYTES PERCENT AUTO 27 % (21-46); MONOCYTES PERCENT AUTO 8 % (4-13); Mean Corpuscular HGB Conc 34.1 g/dL (31.5-36.5); Mean Corpuscular Volume 82 fL (80-100); Mean Platelet Volume 9.9 fL (9.1-12.4); NEUTROPHILS ABSOLUTE AUTO 3.31 K/mm3 (1.96-9.15); NEUTROPHILS PERCENT AUTO 62 % (41-73); Platelet Count 239 K/mm3 (150-400); RDW Coefficient Variation 13.3 % (11.7-14.2); RDW Standard Deviation 39.8 fL (35.1-46.3); Red Blood Cell Count 4.57 M/mm3 (4.30-5.90); White Blood Cell Count 5.31 K/mm3 (4.00-11.30)
[2018-04-30 16:59] LABS: Bun/Creatinine Ratio 13.2 (12.0-20.0); Calcium, Blood 7.8 mg/dL (8.5-10.1); Creatinine, Blood 2.04 mg/dL (0.60-1.20); Potassium, Blood 3.7 mmol/L (3.5-5.5)
--- NOTE | 2018-04-30 18:33 | NUR ---
SHIFT SUMMARY: PT IS ALERT AND ORIENTED. PT WAS MEDICATED WITH TRAMADOL 100MG PO ORDERED. PT HAS STATED ABDOMINAL PAIN HAS SUBSIDED AFTER TAKING TRAMADOL. PT WAS ABLE TO TOLERATE CLEAR LIQUID STILL. NO NAUSEA AND VOMITING NOTED. PT IS STILL ON INSULIN DRIP @ 2 UNITS/HR. D5 1/2 NS @ 150ML/HR.
--- NOTE | 2018-04-30 19:15 | NUR ---
ASSUMED PT CARE; BEDSIDE REPORT GIVEN PT SITTING UP IN BED; APPEARS ALERT AND ORIENTED AND ABLE TO MAKE NEEDS KNOWN. PT VERBALIZED THAT TRAMADOL WAS EFFECTIVE FOR HIS BELLY PAIN. PROTONIX GTT 10MLS/HR; NS TKO; INSULIN GTT 2 UNITS/HR. PT DENIES ANY CURRENT PAIN OR NAUSEA/VOMITING. CALL LIGHT IN REACH.
[2018-05-01 00:43] LABS: Bun/Creatinine Ratio 14.2 (12.0-20.0); Calcium, Blood 7.3 mg/dL (8.5-10.1); Creatinine, Blood 1.9 mg/dL (0.60-1.20); Potassium, Blood 3.8 mmol/L (3.5-5.5)
[2018-05-01 03:48] LABS: International Normalized Ratio 2.02; Prothrombin Time Results 20.1 Sec (9.7-11.5)
--- NOTE | 2018-05-01 06:06 | NUR ---
END OF SHIFT SUMMARY INSULIN GTT TURNED OFF AT 2300. SPOT CHECKED BLOOD SUGAR AT APPROXIMATELY 0300 WITH BS 94. PT HAS BEEN TOLERATING LIQUIDS; HASN'T TRIED ANY SOLID FOODS. NO C/O PAIN T/O SHIFT. SLEPT MOST OF NIGHT; CALL LIGHT IN REACH.
--- NOTE | 2018-05-01 07:00 | NUR ---
ASSUMED CARE OF PT. PT IS ALERT AND ORIENTED. PT WAS YELLING PER NIGHT RNs STATED. PT STATED HE "DISLOCATED" HIS LEFT SHOULDER WHEN HE REPOSITIONED. PT STATED THAT HE OFTEN TIMES DO THIS. PT WAS MEDICATED FOR PAIN. PT IS STILL ON PROTONIX DRIP @ 10ML/HR. PT DENIES OF ABDOMINAL PAIN AT THIS TIME.
--- NOTE | 2018-05-01 08:30 | NUR ---
0704-BLOOD SUGAR 44 AT THIS TIME. PT IS ASYMPTOMATIC. GAVE PT 1 CARTON OF MILK AND A GLASS OF ORANGE JUICE. 0730-RECHECKED CBG 46 AFTER TAKING A FULL CARTON OF MILK AND A GLASS OF MILK. PT THUS THEN MEDICATED WITH 1/2 AMP OF D50. 0815-DR. NGUYỄN CAME BY TO SEE PT. UPDATED HIM OF PT'S STATUS. DR. NGUYỄN WAS NOTIFIED REGARDING PT'S LOW BLOOD SUGAR.
--- NOTE | 2018-05-01 10:30 | NUR ---
DR. NGUYỄN WAS NOTIFIED REGARDING PT'S IMPROVED BLOOD SUGAR AFTER GETTING ANOTHER HALF AMP OF D50. ORDERS RECEIVED.
--- NOTE | 2018-05-01 12:03 | NUR ---
REPORT GIVEN TO BERTRAND NAYAK IN SURGICAL FLOOR. PT WILL BE TRANSFERED TO 227.
--- NOTE | 2018-05-01 12:45 | NUR ---
1215-CAROL, KNOT TIER CAME BY TO TALK TO PATIENT ABOUT DIABETIC EDUCATION. PT COMPLAINTS OF BEING NAUSEOS. PT WAS MEDICATED WITH ZOFRAN. 1230-PT WAS TRANSFERED TO ROOM 227 AT THIS TIME.
--- NOTE | 2018-05-01 12:54 | NUR ---
PT TRANSFERRED FROM ICU, A&OX4, STAND TRANSFER TO BED, DECLINED CHAIR AND SHOWER AT THIS TIME. DENIES PAIN. DENIES N&V.
--- NOTE | 2018-05-01 19:44 | NUR ---
SHIFT SUMMARY PT A&OX4, VSS, CBG CNI. ALEX PO, C/O NAUSEA, ZOFRAN GIVEN X1, DENIES VOMITING. DENIES PAIN AT THIS TIME. INDEPENDENT TO BRP, VOIDING WELL. AMBULATED HALLWAYS. PLEASANT & COOPERATIVE. REPORT GIVEN TO JESUS THURSTON.
--- NOTE | 2018-05-02 04:20 | NUR ---
SHIFT SUMMARY: NO ACUTE CHANGES OVER NIGHT. PT COVERED WITH 2 UNITS OF HUMALOG PER EMAR WITH BLOOD GLUCOSE OF 203. PT VERY PLEASENT AND COOPERATIVE. GIVEN EDUCATION ON INSULIN REGIMEN. GIVEN ULTRAM ONCE FOR C/O SHOULDER PAIN. PLAN FOR DISCHARGE TODAY. PT REPORTS HIS SISTER WILL BE ABLE TO PROVIDE TRANSPORTATION AROUND [place] TODAY. NO CONCERNS AT THIS TIME.
[2018-05-02 04:36] LABS: BASOPHILS ABSOLUTE AUTO 0.03 K/mm3 (0.00-0.23); BASOPHILS PERCENT AUTO 1 % (0-2); EOSINOPHILS ABSOLUTE AUTO 0.07 K/mm3 (0.00-0.68); EOSINOPHILS PERCENT AUTO 1 % (0-6); Hematocrit 32.9 % (37.0-53.0); Hemoglobin 10.5 g/dL (13.5-17.5); IMMATURE GRAN ABSOLUTE AUTO 0.02 K/mm3 (0.00-0.10); IMMATURE GRAN PERCENT AUTO 0 % (0-1); LYMPHOCYTES ABSOLUTE AUTO 1.13 K/mm3 (0.84-5.20); LYMPHOCYTES PERCENT AUTO 23 % (21-46); MONOCYTES ABSOLUTE AUTO 0.34 K/mm3 (0.16-1.47); MONOCYTES PERCENT AUTO 7 % (4-13); Mean Corpuscular HGB 28.1 pg (26.0-34.0); Mean Corpuscular HGB Conc 31.9 g/dL (31.5-36.5); NEUTROPHILS ABSOLUTE AUTO 3.32 K/mm3 (1.96-9.15); NEUTROPHILS PERCENT AUTO 68 % (41-73); Platelet Count 223 K/mm3 (150-400); RDW Coefficient Variation 13.8 % (11.7-14.2); RDW Standard Deviation 44.8 fL (35.1-46.3); Red Blood Cell Count 3.74 M/mm3 (4.30-5.90); White Blood Cell Count 4.91 K/mm3 (4.00-11.30)
[2018-05-02 04:42] LABS: Mean Corpuscular Volume 88 fL (80-100)
[2018-05-02 04:58] LABS: International Normalized Ratio 2.13; Prothrombin Time Results 21.1 Sec (9.7-11.5)
[2018-05-02 05:00] LABS: Bun/Creatinine Ratio 13.9 (12.0-20.0); Calcium, Blood 7.7 mg/dL (8.5-10.1); Creatinine, Blood 1.94 mg/dL (0.60-1.20); Potassium, Blood 3.8 mmol/L (3.5-5.5)
[2018-05-02] MEDS ORDERED: WARF3 PO (14:24)
[2018-05-02] MEDS ORDERED: ONDA4ODT (14:25)
[2018-05-02] MEDS ORDERED: INSULANPEN SC (14:27)
[2018-05-02] MEDS ORDERED: Humalog100 UNIT/1 SC (14:28)
[2018-05-02] MEDS ORDERED: PANT40 PO (14:53)
--- NOTE | 2018-05-02 16:17 | NUR ---
DISCHARGE DISCHARGE INSTRUCTIONS REVIEWED WITH PATIENT AND HIS DAUGHTER AND QUESTIONS ANSWERED. PRESCRIPTIONS PHONED TO JESSICA GRIDER. PATIENT AMBULATED OUT OF ROOM WITH DAUGHTER AT 2031
== END 2018-05-02 15:15 | disposition home or self-care (01) | DRG 638 ==
LOC: ER 00:01 → ERHOLD 00:02 → SURS 07:40 → ICUE 07:52 → SURS 05-01 12:30
PROVIDERS: Emergency Medicine; Hospitalist; ADMIT Internal Medicine
DX: E11.10 Type 2 diabetes mellitus with ketoacidosis without coma (principal); I50.22 Chronic systolic (congestive) heart failure; N17.9 Acute kidney failure, unspecified; I48.91 Unspecified atrial fibrillation; E11.22 Type 2 diabetes mellitus with diabetic chronic kidney disease; N18.3 Chronic kidney disease, stage 3 (moderate); E86.0 Dehydration; I95.9 Hypotension, unspecified; Z91.14 Patient's other noncompliance with medication regimen; Z79.01 Long term (current) use of anticoagulants; Z79.4 Long term (current) use of insulin; Z79.51 Long term (current) use of inhaled steroids; Z79.899 Other long term (current) drug therapy; Z87.891 Personal history of nicotine dependence
CPT/HCPCS: 36415; 71045; 80047; 80048; 80053; 81003; 82010; 82947; 83690; 85014; 85025; 85027; 85610; 87486; 87581; 87633; 87798; 93005; 93010; 93306; 96361; 96365; 96366; 96367; 96368; 96375; 96376; 99285-25; C9113; G0378; J1815; J2405; J3010; J3480; J7030; J7042

== ENCOUNTER 2018-11-26 17:06 | Inpatient (IN) | payer OTHER, MEDICARE ==
[~2018-11-26] VITALS: Ht 182.9 cm; Wt 68.5 kg
[~2018-11-26 17:06] MED LIST changes: +Humalog100 UNIT/1 SC; -Lisinopril2.5 MG; +ONDA4ODT; +WARF1 PO
[2018-11-26 17:20] LABS: Calcium, Ionized (POC) 1.09 mmol/L (1.10-1.46); Chloride (POC) 116 mmol/L (98-108); Creatinine (POC) 4.1 mg/dL (0.8-1.3); Glucose (ISTAT POC) 98 mg/dL (70-99); Hemoglobin (POC) 11.9 g/dL (13.5-17.5); Potassium (POC) 4.1 mmol/L (3.5-5.5); Sodium (POC) 139 mmol/L (135-148); Total CO2 (POC) 15 mmol/L (21-32)
[2018-11-26 17:41] LABS: BASOPHILS ABSOLUTE AUTO 0.04 K/mm3 (0.00-0.23); BASOPHILS PERCENT AUTO 1 % (0-2); EOSINOPHILS ABSOLUTE AUTO 0.23 K/mm3 (0.00-0.68); EOSINOPHILS PERCENT AUTO 7 % (0-6); Hematocrit 31.3 % (37.0-53.0); Hemoglobin 8.4 g/dL (13.5-17.5); IMMATURE GRAN ABSOLUTE AUTO 0.02 K/mm3 (0.00-0.10); IMMATURE GRAN PERCENT AUTO 1 % (0-1); LYMPHOCYTES ABSOLUTE AUTO 0.87 K/mm3 (0.84-5.20); LYMPHOCYTES PERCENT AUTO 26 % (21-46); MONOCYTES ABSOLUTE AUTO 0.31 K/mm3 (0.16-1.47); MONOCYTES PERCENT AUTO 9 % (4-13); Mean Corpuscular HGB 32.3 pg (26.0-34.0); Mean Corpuscular HGB Conc 26.8 g/dL (31.5-36.5); Mean Corpuscular Volume 120 fL (80-100); Mean Platelet Volume 9.8 fL (9.1-12.4); NEUTROPHILS ABSOLUTE AUTO 1.88 K/mm3 (1.96-9.15); NEUTROPHILS PERCENT AUTO 56 % (41-73); Platelet Count 133 K/mm3 (150-400); RDW Coefficient Variation 15.6 % (11.7-14.2); RDW Standard Deviation 69.7 fL (35.1-46.3); White Blood Cell Count 3.35 K/mm3 (4.00-11.30)
[2018-11-26 17:54] LABS: International Normalized Ratio 3.16; Prothrombin Time Results 30.2 Sec (9.7-11.5)
[2018-11-26 18:50] LABS: Source, Urine Catheter
[2018-11-26 18:53] LABS: Bilirubin, Urine Neg (Neg); Blood, Urine 4+ (Neg); Glucose Qualitative, Urine Neg (Neg); Ketones, Urine Neg (Neg); Leukocyte Esterase, Urine 1+ (Neg); Nitrite, Urine Neg (Neg); Protein, Urine 1+ (Neg); Urobilinogen, Urine NORM (Normal)
[2018-11-26 19:01] LABS: Appearance, Urine Clear (Clear); Color, Urine Yellow (P-Yellow)
[2018-11-26 19:02] LABS: Bacteria Rare /hpf; Red Blood Cells, Urine 25-50 /hpf (0-2); Squamous Epithelial Cells Rare /hpf (Few)
[2018-11-26 19:08] LABS: U Amphetamine Screen Not Detected; U Barbituate Screen Not Detected; U Benzodiazapine Screen Not Detected; U Buprenorphine Screen Not Detected; U Cannabinoids Screen DETECTED; U Cocaine Screen Not Detected; U Methadone Screen Not Detected; U Methamphetamine Screen Not Detected; U Opiates Screen Not Detected; U Oxycodone Screen Not Detected; U Phencyclidine Screen Not Detected; U Propoxyphene Screen Not Detected
[2018-11-26 19:37] LABS: Alanine Aminotransfer (ALT/SGP 53 U/L (12-78); Albumin, Blood 3.1 g/dL (3.4-5.0); Albumin/Globulin Ratio 0.8 (0.8-1.8); Alk Phos 108 U/L (50-136); Anion Gap 13 mmol/L (6-16); Aspartate Aminotrans (AST/SGOT 31 U/L (12-37); Bilirubin, Total 0.4 mg/dL (0.1-1.0); Blood Urea Nitrogen 47 mg/dL (8-24); Bun/Creatinine Ratio 14.6 (12.0-20.0); CO2, Blood 11 mmol/L (21-32); Calcium, Blood 7.9 mg/dL (8.5-10.1); Chloride, Blood 117 mmol/L (98-108); Creatinine, Blood 3.22 mg/dL (0.60-1.20); Glomerular Filtration Rate 21 (60-); Glucose, Blood 51 mg/dL (70-99); Potassium, Blood 4.1 mmol/L (3.5-5.5); Total Protein, Blood 7.1 g/dL (6.4-8.2)
[2018-11-26 19:38] LABS: Sodium, Blood 141 mmol/L (136-145)
[2018-11-26 20:15] LABS: Ethanol (Alcohol), Blood, Med <3 mg/dL; Salicylate 6.3 mg/dL (2.8-20.0)
[2018-11-26 20:27] LABS: Acetaminophen, Random <2.0 ug/mL (10.0-30.0)
[2018-11-27 05:38] LABS: Hematocrit 29.7 % (37.0-53.0); Hemoglobin 9.8 g/dL (13.5-17.5); Mean Corpuscular HGB 32.6 pg (26.0-34.0); Mean Platelet Volume 10.1 fL (9.1-12.4); Platelet Count 154 K/mm3 (150-400); RDW Coefficient Variation 14.4 % (11.7-14.2); RDW Standard Deviation 52.8 fL (35.1-46.3); Red Blood Cell Count 3.01 M/mm3 (4.30-5.90); White Blood Cell Count 6.05 K/mm3 (4.00-11.30)
[2018-11-27 05:40] LABS: Mean Corpuscular Volume 99 fL (80-100)
[2018-11-27 05:47] LABS: International Normalized Ratio 3.9
[2018-11-27 06:00] LABS: Bun/Creatinine Ratio 15.4 (12.0-20.0); Calcium, Blood 7.4 mg/dL (8.5-10.1); Creatinine, Blood 2.92 mg/dL (0.60-1.20); Potassium, Blood 4.5 mmol/L (3.5-5.5)
[2018-11-27 06:03] LABS: Prothrombin Time Results 36.5 Sec (9.7-11.5)
--- NOTE | 2018-11-27 07:55 | NUR ---
ASSUMED CARE PT ALERT AND ORIENTED. VS STABLE. O2 SATS REMAIN ABOVE 90% ON RA. HR AFIB WITH A RATE RANGING FROM 80-110'S. PT COMPLAINS OF 9/10 PAIN IN HIS "RIB AREA". PT STATES [employer] HAS NOT WORKED. DR. MORRISSEY CALLED AND NEW ORDERS PROVIDED. OROZCO PATENT AND DRAINING. PT REPORTS HE DOES NOT HAVE ANY PROBLEMS URINATING AT BASELINE. CATHETER TO BE REMOVED THIS SHIFT. PT ABLE TO TRANSFER WITH SBA AND FWW. WILL CONTINUE TO MONITOR CLOSELUY.
--- NOTE | 2018-11-27 08:15 | NUR ---
STUDENT NURSE GIVEN PERMISSION TO PROVE CARE BY PATIENT.
--- NOTE | 2018-11-27 15:12 | NUR ---
REPORT GIVEN TO MAG THURSTON.
--- NOTE | 2018-11-27 16:30 | NUR ---
ASSUMED CARE: PT RESTING IN BED AT THIS TIME. AFIB IN 90S. NO ACUTE NEEDS OR DISTRESS NOTED AT THIS TIME.
--- NOTE | 2018-11-27 18:45 | NUR ---
SHIFT SUMMARY: PT RESTING IN BED AT THIS TIME. MEDICATED X2 FOR PAIN SINCE ASSUMPTION OF CARE. DENIES FURTHER NEEDS OR CONCERNS AT THIS TIME.
--- NOTE | 2018-11-27 21:52 | NUR ---
PCU NIGHTSHIFT ASSUMED CARE OF PT MORGANX. 1899. PT A&OX4. VITAL SIGNS STABLE. ASSESSMENT COMPLETED. PT REPORTS PAIN IN HIS LEFT SIDE. THE SHIFT PROGRESSED THIS PAIN INCREASED. PRN PAIN MEDICAITON GIVEN PER [facility]. PT SKIN FRAGILE AND BRUISED T/O BODY. SCAB PRESENT ON BILATERAL ARMS AND HANDS. PT BLOOD SUGARS HAVE BEEN STABLE. BED IN LOW POSITION, CALL LIGHT IN REACH AND PT DENIES ANY NEEDS. WILL CONTINUE TO MONITOR.
[2018-11-28 03:49] LABS: BASOPHILS ABSOLUTE AUTO 0.03 K/mm3 (0.00-0.23); BASOPHILS PERCENT AUTO 1 % (0-2); EOSINOPHILS ABSOLUTE AUTO 0.25 K/mm3 (0.00-0.68); EOSINOPHILS PERCENT AUTO 5 % (0-6); Hematocrit 28.9 % (37.0-53.0); Hemoglobin 9.4 g/dL (13.5-17.5); IMMATURE GRAN ABSOLUTE AUTO 0.01 K/mm3 (0.00-0.10); IMMATURE GRAN PERCENT AUTO 0 % (0-1); LYMPHOCYTES ABSOLUTE AUTO 1.03 K/mm3 (0.84-5.20); LYMPHOCYTES PERCENT AUTO 21 % (21-46); MONOCYTES PERCENT AUTO 6 % (4-13); Mean Corpuscular HGB 32.1 pg (26.0-34.0); Mean Corpuscular HGB Conc 32.5 g/dL (31.5-36.5); Mean Corpuscular Volume 99 fL (80-100); Mean Platelet Volume 9.7 fL (9.1-12.4); NEUTROPHILS ABSOLUTE AUTO 3.36 K/mm3 (1.96-9.15); NEUTROPHILS PERCENT AUTO 68 % (41-73); Platelet Count 168 K/mm3 (150-400); RDW Coefficient Variation 14.4 % (11.7-14.2); RDW Standard Deviation 51.7 fL (35.1-46.3); Red Blood Cell Count 2.93 M/mm3 (4.30-5.90); White Blood Cell Count 4.98 K/mm3 (4.00-11.30)
[2018-11-28 04:01] LABS: International Normalized Ratio 3.79; Prothrombin Time Results 35.6 Sec (9.7-11.5)
[2018-11-28 04:10] LABS: Albumin, Blood 2.7 g/dL (3.4-5.0); Albumin/Globulin Ratio 0.8 (0.8-1.8); Bilirubin, Total 0.3 mg/dL (0.1-1.0); Calcium, Blood 7.6 mg/dL (8.5-10.1); Creatinine, Blood 2.56 mg/dL (0.60-1.20); Globulin, Blood 3.2 g/dL (2.2-4.0); Potassium, Blood 5.2 mmol/L (3.5-5.5); Total Protein, Blood 5.9 g/dL (6.4-8.2)
--- NOTE | 2018-11-28 05:12 | NUR ---
SHIFT SUMMARY PT PLEASANT, COOPERATIVE AND USES CALL LIGHT APROPIATELY. PT REMAINS A&OX4. VITAL SIGNS STABLE. ASSESSMENT FINDINGS REMAIN UNCHANGED. PT CONTINUED TO HAVE INCREASED PAIN INTERMITTENTLY T/O SHIFT. PRN PAIN MEDICATION GIVEN NEEDED PER [facility]. EDUCATED PT ON PAIN MEDICATION AND UTILIZING BOWEL PROTOCOL. PT REPROTS HE WILL WAIT UNTIL CLOSER TO BREAKFAST TO TAKE MORE. BED IN LOW POSITION, CALL LIGHT IN REACH AND PT DENIES ANY NEEDS. WILL CONTINUE TO MONITOR UNTIL HANDOFF TO DAYSHIFT RN
[2018-11-28 14:23] LABS: Appearance, Urine Clear (Clear); Bilirubin, Urine Neg (Neg); Blood, Urine 1+ (Neg); Color, Urine Yellow (P-Yellow); Glucose Qualitative, Urine 1+ (Neg); Ketones, Urine Neg (Neg); Leukocyte Esterase, Urine Neg (Neg); Nitrite, Urine Neg (Neg); Protein, Urine 1+ (Neg); Specific Gravity, Urine 1.015 (1.003-1.022); Urobilinogen, Urine NORM (Normal)
[2018-11-28 14:37] LABS: Bacteria Mod /hpf; Red Blood Cells, Urine 0-2 /hpf (0-2); Squamous Epithelial Cells Rare /hpf (Few)
[2018-11-28 15:19] LABS: Protein, Urine Random 19.7 mg/dL (0.0-11.9)
--- NOTE | 2018-11-28 19:20 | NUR ---
SHIFT SUMMARY PT ALERT AND ORIENTED. VS STABLE. O2 SATS REMAIN ABOVE 90% ON RA. HR AFIB RATE CONTROLLED. PT COMPLAINS OF PAIN IN HIS LEFT RIB AREA AND MEDICATED NEEDED. PT ABLE TO AMBULATE TO BATHROOM NEEDED WITH SBA. REPORT GIVEN TO GENERAL MANAGER IN TRAINING RN.
[2018-11-29 03:54] LABS: International Normalized Ratio 1.83; Prothrombin Time Results 18.4 Sec (9.7-11.5)
[2018-11-29 04:02] LABS: Albumin, Blood 3.1 g/dL (3.4-5.0); Anion Gap 6 mmol/L (6-16); Blood Urea Nitrogen 48 mg/dL (8-24); Bun/Creatinine Ratio 17.6 (12.0-20.0); CO2, Blood 18 mmol/L (21-32); Calcium, Blood 7.8 mg/dL (8.5-10.1); Chloride, Blood 113 mmol/L (98-108); Creatinine, Blood 2.72 mg/dL (0.60-1.20); Glomerular Filtration Rate 25 (60-); Glucose, Blood 183 mg/dL (70-99); Percent Saturation 34.7 % (20.0-50.0); Phosphorus, Blood 5.8 mg/dL (2.5-4.9); Sodium, Blood 137 mmol/L (136-145)
--- NOTE | 2018-11-29 06:49 | NUR ---
SUMMARY PT UP IN HALLS WITH WALKER TONIGHT. TOLERATING PO AND VOIDING. CBGS STABILIZING.PAIN CONTROLLED WITH PO MEDS EXCEPT X 1 DOSE OF SUBLIMAZE 25 MCG. PT TALKATIVE AND COOPERATIVE WITH CARE. HOPING FOR DISCHARGE HOME TODAY.
--- NOTE | 2018-11-29 09:20 | NUR ---
PCU DAYSHIFT ASSUMED CARE OF PT APPROX. 0700. PT A&OX4. VITAL SIGNS STABLE. ASSESSMENT COMPLETED. PT REPORTS TO CONTINUE TO HAVE PAIN IN LEFT RIBS. OTHERWISE STATES HE FEELS GOOD. SKIN REMAINS FRAGILE, WITH SCAB T/O EXTREMITIES. PHYSICIAN IN TO SEE PT THIS MORNING. HE REPROTS HE WILL BE SENDING PT HOME TODAY, SUGARD HAVE REMAIN STABLE. PT AWARE AND TO CALL FOR A RIDE FOR LATER TODAY. WILL AWAIT DISCHARGE ORDRES. PT ABLE TO AMBULATE AROUND ROOM/UNIT WITH PEER STAFF. BED IN LOW POSITION, CALL LIGHT IN REACH AND PT DENIES ANY NEEDS. WILL CONTINUE TO MONITOR.
[2018-11-29] MEDS ORDERED: HYDR1TAB94 PO (13:12)
--- NOTE | 2018-11-29 13:44 | NUR ---
DISCHARGE RECIEVED DISCHARGE ORDERS FROM PHYSICIAN. COMPLETED DISCHARGE PROCESS. MEDICATIONS FAXED TO PHARMACY. REVIEWED DISCHARGE ORDERS WITH PT. QUESTIONS ANSWERED. PT AWAITING RIDE. PT TO BE ESCORTED BY PEER STAFF MEMBER VIA WHEELCHAIR TO AUTOMOBILE.
[2018-12-02 15:07] LABS: A/G RATIO 1.2 (0.7-1.7); ALBUMIN 3.2 g/dL (2.9-4.4); ALPHA-1-GLOBULIN 0.3 g/dL (0.0-0.4); ALPHA-2-GLOBULIN 0.5 g/dL (0.4-1.0); BETA GLOBULIN 0.7 g/dL (0.7-1.3); GAMMA GLOBULIN 1.3 g/dL (0.4-1.8); GLOBULIN, TOTAL 2.8 g/dL (2.2-3.9); IMMUNOGLOBULIN A, QN, SERUM 115 mg/dL (61-437); IMMUNOGLOBULIN G, QN, SERUM 1102 mg/dL (700-1600); IMMUNOGLOBULIN M, QN, SERUM 267 mg/dL (20-172); M-SPIKE Not Observed g/dL (Not Observed)
== END 2018-11-29 14:00 | disposition home or self-care (01) | DRG 917 ==
LOC: ER 17:06 → PCU 19:05
PROVIDERS: Emergency Medicine; Internal Medicine; ADMIT Internal Medicine
DX: T38.3X1A Poisoning by insulin and oral hypoglycemic [antidiabetic] drugs, accidental (unintentional), initial encounter (principal); G93.41 Metabolic encephalopathy; S22.32XA Fracture of one rib, left side, initial encounter for closed fracture; I48.20 Chronic atrial fibrillation, unspecified; N17.9 Acute kidney failure, unspecified; I42.6 Alcoholic cardiomyopathy; E11.649 Type 2 diabetes mellitus with hypoglycemia without coma; T68.XXXA Hypothermia, initial encounter; Z90.49 Acquired absence of other specified parts of digestive tract; V89.2XXA Person injured in unspecified motor-vehicle accident, traffic, initial encounter; Y92.9 Unspecified place or not applicable; N20.0 Calculus of kidney; D64.9 Anemia, unspecified; I10 Essential (primary) hypertension; Z79.01 Long term (current) use of anticoagulants; F17.200 Nicotine dependence, unspecified, uncomplicated; Z79.4 Long term (current) use of insulin
CPT/HCPCS: 36415; 51702; 70450; 71045; 71250; 72125; 74176; 80047; 80048; 80053; 80069; 81001; 82550; 82570; 82728; 82784; 82947; 83540; 83550; 83690; 84156; 84165; 85014; 85025; 85027; 85610; 85730; 86334; 86850; 86900; 86901; 87086; 90686; 93005; 93010; 96361-59; 96374-59; 96376-59; 97116; 97162; 97166; 97530; 97535; 99285-25; A9270; A9270-GY; G0480; J2405; J3010; J7030; J7042; J7120; J7799; L0160

== ENCOUNTER 2019-01-21 17:08 | Emergency (ER) | payer MEDICARE, OTHER ==
[~2019-01-21] VITALS: Ht 182.9 cm; Wt 65.3 kg
[2019-01-21 18:01] LABS: BASOPHILS ABSOLUTE AUTO 0.03 K/mm3 (0.00-0.23); BASOPHILS PERCENT AUTO 0 % (0-2); EOSINOPHILS ABSOLUTE AUTO 0.02 K/mm3 (0.00-0.68); EOSINOPHILS PERCENT AUTO 0 % (0-6); Hematocrit 41.5 % (37.0-53.0); Hemoglobin 14.1 g/dL (13.5-17.5); IMMATURE GRAN ABSOLUTE AUTO 0.06 K/mm3 (0.00-0.10); IMMATURE GRAN PERCENT AUTO 1 % (0-1); LYMPHOCYTES ABSOLUTE AUTO 0.93 K/mm3 (0.84-5.20); LYMPHOCYTES PERCENT AUTO 7 % (21-46); MONOCYTES ABSOLUTE AUTO 0.62 K/mm3 (0.16-1.47); MONOCYTES PERCENT AUTO 5 % (4-13); Mean Corpuscular HGB 32.9 pg (26.0-34.0); Mean Corpuscular Volume 97 fL (80-100); Mean Platelet Volume 11.2 fL (9.1-12.4); NEUTROPHILS ABSOLUTE AUTO 11.42 K/mm3 (1.96-9.15); NEUTROPHILS PERCENT AUTO 87 % (41-73); Platelet Count 166 K/mm3 (150-400); RDW Coefficient Variation 12.8 % (11.7-14.2); RDW Standard Deviation 45.7 fL (35.1-46.3); Red Blood Cell Count 4.29 M/mm3 (4.30-5.90); White Blood Cell Count 13.08 K/mm3 (4.00-11.30)
[2019-01-21 18:16] LABS: Albumin, Blood 3.3 g/dL (3.4-5.0); Albumin/Globulin Ratio 0.8 (0.8-1.8); Bilirubin, Total 0.8 mg/dL (0.1-1.0); Bun/Creatinine Ratio 27.3 (12.0-20.0); Calcium, Blood 8.2 mg/dL (8.5-10.1); Creatinine, Blood 1.72 mg/dL (0.60-1.20); Globulin, Blood 3.9 g/dL (2.2-4.0); Potassium, Blood 3.3 mmol/L (3.5-5.5); Total Protein, Blood 7.2 g/dL (6.4-8.2)
[2019-01-21 21:53] LABS: Campylobacter Sp Not Detected (NOT DETECT); Plesiomonas Shigelloides Not Detected (NOT DETECT); Salmonella Sp Not Detected (NOT DETECT); Yersinia Enterocolitica Not Detected (NOT DETECT)
[2019-01-21 21:54] LABS: Adenovirus F 40/41 Not Detected (NOT DETECT); Astrovirus Not Detected (NOT DETECT); Cryptosporidium Not Detected (NOT DETECT); Cyclospora Cayetanensis Not Detected (NOT DETECT); E. Coli O157 Not Detected (NOT DETECT); Entamoeba Histolytica Not Detected (NOT DETECT); Enteroaggregative E. coli-EAEC Not Detected (NOT DETECT); Enteropathogenic E. coli-EPEC Not Detected (NOT DETECT); Enterotoxigenic E. coli-ETEC Not Detected (NOT DETECT); Giardia Lamblia Not Detected (NOT DETECT); Norovirus GI/GII Not Detected (NOT DETECT); Rotavirus A Not Detected (NOT DETECT); Sapovirus Not Detected (NOT DETECT); Shiga Toxin-prod E. coli-STEC Not Detected (NOT DETECT); Shigella/Enteroin E. coli-EIEC Not Detected (NOT DETECT); Vibrio Cholerae Not Detected (NOT DETECT); Vibrio Sp Not Detected (NOT DETECT)
[2019-01-21] MEDS ORDERED: ONDA4ODT MM (22:01)
== END 2019-01-21 23:00 | disposition home or self-care (01) ==
LOC: ER 17:08
PROVIDERS: Physician Assistant
DX: K52.9 Noninfective gastroenteritis and colitis, unspecified (principal); I48.20 Chronic atrial fibrillation, unspecified; E11.10 Type 2 diabetes mellitus with ketoacidosis without coma; E11.22 Type 2 diabetes mellitus with diabetic chronic kidney disease; N18.9 Chronic kidney disease, unspecified; F17.200 Nicotine dependence, unspecified, uncomplicated; Z79.899 Other long term (current) drug therapy; Z79.4 Long term (current) use of insulin; Z79.01 Long term (current) use of anticoagulants
CPT/HCPCS: 0097U; 74176; 80053; 82272; 83690; 84484; 85025; 93005; 93010; 96361; 96374; 96375; 99284-25; J2405; J3010; J7030

== ENCOUNTER 2019-01-31 15:54 | Observation (INO) | payer MEDICARE, OTHER ==
[~2019-01-31] VITALS: Ht 182.9 cm; Wt 60.7 kg
[~2019-01-31 15:54] MED LIST changes: +ONDA4ODT MM
[2019-01-31 16:29] LABS: Base Excess Venous -2.7 mmol/L; Bicarbonate Venous 21.5 mmol/L (24.0-30.0); PCO2 Venous 42.6 mmHg (38-42); PO2 Venous 36.3 mmHg (38-42); pH Blood Venous 7.34 (7.34-7.37)
[2019-01-31 16:42] LABS: BASOPHILS ABSOLUTE AUTO 0.01 K/mm3 (0.00-0.23); BASOPHILS PERCENT AUTO 0 % (0-2); EOSINOPHILS ABSOLUTE AUTO 0.01 K/mm3 (0.00-0.68); EOSINOPHILS PERCENT AUTO 0 % (0-6); Hematocrit 44.8 % (37.0-53.0); Hemoglobin 15.5 g/dL (13.5-17.5); IMMATURE GRAN ABSOLUTE AUTO 0.05 K/mm3 (0.00-0.10); IMMATURE GRAN PERCENT AUTO 1 % (0-1); LYMPHOCYTES ABSOLUTE AUTO 1.06 K/mm3 (0.84-5.20); LYMPHOCYTES PERCENT AUTO 23 % (21-46); MONOCYTES ABSOLUTE AUTO 0.15 K/mm3 (0.16-1.47); MONOCYTES PERCENT AUTO 3 % (4-13); Mean Corpuscular HGB 32.3 pg (26.0-34.0); Mean Corpuscular HGB Conc 34.6 g/dL (31.5-36.5); Mean Platelet Volume 11.2 fL (9.1-12.4); NEUTROPHILS ABSOLUTE AUTO 3.35 K/mm3 (1.96-9.15); NEUTROPHILS PERCENT AUTO 72 % (41-73); Platelet Count 141 K/mm3 (150-400); RDW Coefficient Variation 12.9 % (11.7-14.2); RDW Standard Deviation 44.2 fL (35.1-46.3); White Blood Cell Count 4.63 K/mm3 (4.00-11.30)
[2019-01-31 16:43] LABS: Mean Corpuscular Volume 93 fL (80-100)
[2019-01-31 16:56] LABS: Albumin, Blood 3.1 g/dL (3.4-5.0); Albumin/Globulin Ratio 0.9 (0.8-1.8); Bilirubin, Total 0.4 mg/dL (0.1-1.0); Bun/Creatinine Ratio 32.9 (12.0-20.0); Calcium, Blood 10.2 mg/dL (8.5-10.1); Creatinine, Blood 2.07 mg/dL (0.60-1.20); Globulin, Blood 3.5 g/dL (2.2-4.0); Total Protein, Blood 6.6 g/dL (6.4-8.2)
[2019-01-31 17:01] LABS: CPK Creatine Kinase 217 U/L (39-308)
[2019-01-31] MEDS ORDERED: SODBIC650 PO (18:37)
[2019-01-31] MEDS ORDERED: FERSU300 PO (18:37)
[2019-01-31] MEDS ORDERED: Vitamin D2000 UNIT PO (18:37)
[2019-01-31] MEDS ORDERED: WARF5 PO (18:39)
[2019-01-31 19:44] LABS: Troponin I <0.015 ng/mL (0.000-0.040)
[2019-01-31 21:20] LABS: International Normalized Ratio 1.06; Prothrombin Time Results 11.2 Sec (9.7-11.5)
--- NOTE | 2019-01-31 21:32 | NUR ---
TRANSFER NOTE RECEIVED HANDOFF FROM ER NURSE MANISH. PT TRANSFERED TO MEDICAL FLOOR VIA GURNEY. PT ORIENTED TO UNIT, CALL BUTTON WITHIN REACH. D5WLR RUNNING @ 75 ML/HR. Q 2 HR CHEMSTICKS. WE WILL ALSO CHECK HIS BLOOD PRESSURE AND TEMPERATURES AT THE SAME TIME THE CHEMSTICKS. PT PROVIDED WITH WARM BLANKETS. BED ALARM ON.
--- NOTE | 2019-01-31 23:17 | NUR ---
CALLED HOSPITALIST RE: HYPOTENSIVE READINGS. PT IS EMACIATED AND MAY NATURALLY RUN HYPOTENSIVE. ASYMPTOMATIC. HOSPITALIST STATED WE CAN FINISH THE D5LR INFUSION AND THEN BEGIN THE NS INFUSION. (WE HAVE BEEN MEASURING BP'S AND TEMPS Q 2 HRS AT THE SAME TIME THE Q 2 HR CHEMSTICKS.)
--- NOTE | 2019-02-01 01:23 | NUR ---
NOTED GLUCOSE LEVEL ELEVATED 290 GLUCOSE LEVEL @ 1AM CHEMSTICK. PT HAD MANY SNACKS AND GOODIES (ICE CREAM, SANDWICH, JELLO'S). INFORMED CHARGE. D5LR INFUSION IS ALMOST COMPLETE, I WAS ADVISED TO COMPLETE INFUSION AND ASSESS GLUCOSE LEVEL AT THE NEXT SCHEDULED TIME.
[2019-02-01 03:39] LABS: Calcium, Blood 8.9 mg/dL (8.5-10.1); Creatinine, Blood 1.88 mg/dL (0.60-1.20); Magnesium, Blood 1.7 mg/dL (1.6-2.4); Potassium, Blood 4.8 mmol/L (3.5-5.5)
--- NOTE | 2019-02-01 04:37 | NUR ---
SHIFT SUMMARY ER ADMIT FOR HYPOGLYCEMIA/WEAKNESS THIS SHIFT. OBSERVATION PT. HX:AFIB, DM2. Q2 CHEMSTICKS ORDERED. I HAVE BEEN MONITORING BP'S AND TEMPS Q 2 HRS DUE TO HYP0-RESULTS. D5 LR INFUSION IS COMPLETED. PT STATED HE HAS BEEN ON BEDREST FOR TWO WEEKS, TOO WEAK TO EAT. EMATIATED APPEARANCE. PAIN RX AVAILABLE FOR LOWER BACK PAIN IN [facility]. PT HAS A GOOD APPETITE HERE. FULL CODE. A&O X4
[2019-02-01 10:32] LABS: Source, Urine Clean Catch
[2019-02-01 10:37] LABS: Appearance, Urine Clear (Clear); Bilirubin, Urine Neg (Neg); Blood, Urine Neg (Neg); Color, Urine Yellow (P-Yellow); Glucose Qualitative, Urine 3+ (Neg); Ketones, Urine Neg (Neg); Leukocyte Esterase, Urine Neg (Neg); Nitrite, Urine Neg (Neg); Protein, Urine Neg (Neg); Specific Gravity, Urine 1.015 (1.003-1.022); Urobilinogen, Urine NORM (Normal)
--- NOTE | 2019-02-01 13:47 | NUR ---
SPOKE WITH DR. LOO ABOUT HOME HEALTH DC ORDERS. DR. LOO STATES THAT JOHN FROM [place] WILL FOLLOW UP WITH PATIENT ON SATURDAY REGARDING FURTHER HOME HEALTH ORDERS.
[2019-02-01] MEDS ORDERED: HYDR1TAB94 PO (14:40)
--- NOTE | 2019-02-01 14:47 | NUR ---
D/C MEDICATION CLARIFICATION: PATIENT TO CONTINUE TAKING HUMALOG AT HOME ACHS PER LOW SLIDING SCALE. PATIENT IS NOT TO TAKE HUMULIN R PER DR LOO TELEPHONE ORDER.
--- NOTE | 2019-02-01 15:50 | NUR ---
PATIENT D/C'D TO HOME WITH HOME HEALTH. RIDE GIVEN TO PATIENT BY A CLOSE FRIEND. HARD SCRIPT FOR NORCO GIVEN TO PATIENT. D/C INSTRUCTIONS AND EDUCATION DISCUSSED WITH PATIENT AND COPY PROVIDED. PATIENT DENIES ANY FURTHER QUESTIONS OR CONCERNS.
== END 2019-02-01 15:48 | disposition home health service (06) ==
LOC: ER 15:54 → MEDS 15:55
PROVIDERS: Physician Assistant; ADMIT Internal Medicine
DX: E11.649 Type 2 diabetes mellitus with hypoglycemia without coma (principal); T38.3X5A Adverse effect of insulin and oral hypoglycemic [antidiabetic] drugs, initial encounter; E87.1 Hypo-osmolality and hyponatremia; I48.20 Chronic atrial fibrillation, unspecified; N17.9 Acute kidney failure, unspecified; I12.9 Hypertensive chronic kidney disease with stage 1 through stage 4 chronic kidney disease, or unspecified chronic kidney disease; N18.3 Chronic kidney disease, stage 3 (moderate); E11.22 Type 2 diabetes mellitus with diabetic chronic kidney disease; I42.6 Alcoholic cardiomyopathy; F17.210 Nicotine dependence, cigarettes, uncomplicated; R53.1 Weakness; E88.09 Other disorders of plasma-protein metabolism, not elsewhere classified; R64 Cachexia; F10.21 Alcohol dependence, in remission; R07.9 Chest pain, unspecified; Z68.1 Body mass index [BMI] 19.9 or less, adult; Z87.442 Personal history of urinary calculi; Z79.4 Long term (current) use of insulin; Z79.01 Long term (current) use of anticoagulants; Z79.899 Other long term (current) drug therapy
CPT/HCPCS: 36415; 71046; 72100; 73030; 80048; 80053; 81003; 82550; 82803; 82947; 83605; 83735; 84100; 84443; 84484; 85025; 85610; 87040; 93005; 93010; 96360; 96361; 96374; 97110; 97116; 97161; 99285-25; A9270-GY; G0378; J1815; J2405; J7120